=== PATIENT | female | born 1945 | race Caucasian/White ===

== ENCOUNTER 2017-06-29 21:54 | Emergency (ER) | payer MEDICARE ==
[2017-06-29 22:25] LABS: #Basophils 0.1 thou/uL (0.0-0.2); #Lymphocytes 2.6 thou/uL (1.20-3.40); #Monocytes 0.4 thou/uL (0.11-0.59); #Neutrophils 3.6 thou/uL (1.40-6.50); %Basophils 0.8 % (0.0-1.0); %Eosinophils 0.2 % (0.0-10.0); %Lymphocytes 38.5 % (21.0-51.0); %Monocytes 6.6 % (0.0-10.0); Hematocrit 43.7 % (36.0-47.0); Red Blood Cell (RBC) Count 4.87 mill/uL (4.20-5.40); White Blood Cell (WBC) Count 6.7 thou/uL (4.8-10.8)
[2017-06-29 22:47] LABS: ALT (SGPT) 16 U/L (8-55); AST (SGOT) 19 U/L (5-34); Alkaline Phosphatase 83 U/L (40-150); Anion Gap 15 mmol/L (10-20); BUN (Urea Nitrogen) 13 mg/dL (9.8-20.1); Bilirubin, Total 0.4 mg/dL (0.2-1.2); Calc. Creatinine Clearance 0 mL/min (70-130); Calcium 9.9 mg/dL (7.8-10.44); Carbon Dioxide 27 mmol/L (23-31); Chloride 99 mmol/L (98-107); Estimated GFR-MDRD 79; Globulin 3.3 g/dL (2.4-3.5); Lipase 32 U/L (8-78); Protein, Total 7.6 g/dL (6.0-8.3)
[2017-06-29] MEDS ORDERED: Lidocaine Viscous Sol 2% 15 ml UD Cup ONE (23:00)
[2017-06-29] MEDS ORDERED: Mag-Al 1200 mg/1200 mg/30 ML UDCUP ONE (23:00)
[2017-06-29 23:32] LABS: Troponin I Less than 0.010 ng/mL (< 0.028)
[2017-06-30] MEDS ORDERED: Lisinopril 10 MG TAB ONE (00:55)
--- NOTE | 2017-08-19 13:23 | EKG ---
Test Reason : Blood Pressure : / mmHG Vent. Rate : 060 BPM Atrial Rate : 060 BPM P-R Int : 152 ms QRS Dur : 116 ms QT Int : 444 ms P-R-T Axes : 029 014 023 degrees QTc Int : 444 ms Normal sinus rhythm Incomplete right bundle branch block Inferior infarct , age undetermined Abnormal ECG Confirmed by KELLI EASLEY, SOFIA ([id number]), society editor NAVJOT FARIAS ([id number]) on 08/19/2017 1:23:25 PM Referred By: Confirmed By:SOFIA PEREIRA MD
== END 2017-06-30 00:59 | disposition home or self-care (01) ==
LOC: ERS 21:54
DX: R10.13 Epigastric pain (principal); E78.5 Hyperlipidemia, unspecified; F31.9 Bipolar disorder, unspecified; J45.909 Unspecified asthma, uncomplicated; I10 Essential (primary) hypertension; K21.9 Gastro-esophageal reflux disease without esophagitis; Z79.82 Long term (current) use of aspirin; Z79.899 Other long term (current) drug therapy
CPT/HCPCS: 36415; 80053; 82553; 83690; 84484; 85025; 93005

== ENCOUNTER 2017-12-31 16:01 | Outpatient (CLI) | payer MEDICARE, MEDICAID | END 2017-12-31 16:02 | disposition home or self-care (01) | LOC: BICRAD 16:01 | PROVIDERS: ATTEND Family Medicine | DX: M25.552 Pain in left hip (principal) ==

== ENCOUNTER 2018-01-24 14:06 | Outpatient (CLI) | payer MEDICARE, MEDICAID | END 2018-01-24 14:07 | disposition home or self-care (01) | LOC: BICMAMMO 14:06 | PROVIDERS: ATTEND Orthopaedic Surgery Foot and Ankle Surgery | DX: M85.80 Other specified disorders of bone density and structure, unspecified site (principal) | CPT/HCPCS: 77080 ==

== ENCOUNTER 2018-04-30 12:12 | Outpatient (CLI) | payer MEDICARE, MEDICAID | END 2018-04-30 12:13 | disposition home or self-care (01) | LOC: BICRAD 12:12 | PROVIDERS: ATTEND Orthopaedic Surgery Foot and Ankle Surgery | DX: M25.571 Pain in right ankle and joints of right foot (principal); M19.071 Primary osteoarthritis, right ankle and foot ==

== ENCOUNTER 2018-06-20 13:03 | Outpatient (CLI) | payer MEDICARE, MEDICAID | END 2018-06-20 13:04 | disposition home or self-care (01) | LOC: BICMAMMO 13:03 | PROVIDERS: ATTEND Family Medicine | DX: Z12.31 Encounter for screening mammogram for malignant neoplasm of breast (principal) | CPT/HCPCS: 77063; 77067 ==

== ENCOUNTER 2019-01-24 20:32 | Emergency (ER) | payer MEDICARE, MEDICAID ==
[2019-01-24 21:20] LABS: #Lymphocytes 1.9 thou/uL (1.20-3.40); #Monocytes 0.5 thou/uL (0.11-0.59); #Neutrophils 2.2 thou/uL (1.40-6.50); %Basophils 0.1 % (0.0-1.0); %Eosinophils 0.1 % (0.0-10.0); %Lymphocytes 40.6 % (21.0-51.0); %Monocytes 10.3 % (0.0-10.0); %Neutrophils 48.9 % (42.0-75.0); Hemoglobin 13.3 g/dL (12.0-16.0); Mean Corpuscular HGB CONC 33.3 g/dL (32.0-36.0); Mean Corpuscular Hemoglobin 29.3 pg (27.0-31.0); Mean Corpuscular Volume 87.8 fL (78.0-98.0); Mean Platelet Volume 7.6 fL (7.4-10.4); Platelet Count 213 thou/uL (130-400); RBC Distribution Width 11.8 % (11.5-14.5); Red Blood Cell (RBC) Count 4.53 mill/uL (4.20-5.40); White Blood Cell (WBC) Count 4.6 thou/uL (4.8-10.8)
[2019-01-24 21:41] LABS: Anion Gap 11 mmol/L (10-20); BUN (Urea Nitrogen) 8 mg/dL (9.8-20.1); CK (CPK) 104 U/L (29-168); Calc. Creatinine Clearance 0 mL/min (70-130); Calcium 9.4 mg/dL (7.8-10.44); Carbon Dioxide 29 mmol/L (23-31); Chloride 101 mmol/L (98-107); Estimated GFR-MDRD 86; Glucose 92 mg/dL (83-110); Potassium 3.9 mmol/L (3.5-5.1); Sodium 137 mmol/L (136-145)
== END 2019-01-24 22:25 | disposition home or self-care (01) ==
LOC: ERS 20:32
DX: E86.0 Dehydration (principal); J45.909 Unspecified asthma, uncomplicated; E78.5 Hyperlipidemia, unspecified; I10 Essential (primary) hypertension; K21.9 Gastro-esophageal reflux disease without esophagitis; F31.9 Bipolar disorder, unspecified; Z79.899 Other long term (current) drug therapy; Z79.82 Long term (current) use of aspirin
CPT/HCPCS: 80048; 82550; 85025; 96360

== ENCOUNTER 2019-02-07 22:09 | Emergency (ER) | payer MEDICARE, MEDICAID ==
--- NOTE | 2019-02-07 23:16 | RAD ---
LEFT HAND: 02/07/19 Three views. INDICATIONS: Fall with injury. Soft tissue swelling seen dorsally. There is displaced fracture involving the distal fifth metacarpal with volar displacement and angulat ion of the distal fragment. Mildly displaced fracture involving the base of the proximal phalanx of the fifth finger. Transverse mildly angulated and displaced fracture involving the proximal aspect of the proximal phal anx of the fifth finger. IMPRESSION: Fractures involving the distal fifth metacarpal, proximal aspect of the proximal phalanx of the four th and fifth digits. POS: [facility]
--- NOTE | 2019-02-07 23:16 | RAD ---
RIGHT HAND: 02/07/19 Three views. HISTORY: Injury. Fracture involving the distal radius with impaction. Associated fracture of the ulnar styloid. Carpals, metacarpals, and phalanges appear intact. IMPRESSION: Fracture distal radius and ulna. POS: [facility]
--- NOTE | 2019-02-07 23:19 | RAD ---
RIGHT WRIST: 02/07/19 Three views. HISTORY: Injury. Transverse impacted fracture distal radius. Associated fracture of the ulnar styloid. Carpals appear intact. IMPRESSION: Fracture distal radius and ulna. POS: [facility]
[2019-02-08] MEDS ORDERED: Morphine 4 MG/ML VIAL ONE (00:26)
[2019-02-08] MEDS ORDERED: Ketorolac Tromethamine 30 MG/ML VIAL ONE (00:26)
[2019-02-08] MEDS ORDERED: Adacel (T-DAP) 0.5 ML SYRINGE ONE (03:24)
== END 2019-02-08 03:47 | disposition home or self-care (01) ==
LOC: ERS 22:09
DX: S52.501A Unspecified fracture of the lower end of right radius, initial encounter for closed fracture (principal); S52.601A Unspecified fracture of lower end of right ulna, initial encounter for closed fracture; S62.615A Displaced fracture of proximal phalanx of left ring finger, initial encounter for closed fracture; S62.617A Displaced fracture of proximal phalanx of left little finger, initial encounter for closed fracture; S62.337A Displaced fracture of neck of fifth metacarpal bone, left hand, initial encounter for closed fracture; J45.909 Unspecified asthma, uncomplicated; E78.5 Hyperlipidemia, unspecified; I10 Essential (primary) hypertension; K21.9 Gastro-esophageal reflux disease without esophagitis; F31.9 Bipolar disorder, unspecified; Z79.899 Other long term (current) drug therapy; Z79.82 Long term (current) use of aspirin; W19.XXXA Unspecified fall, initial encounter
CPT/HCPCS: 29105; 29125; 90471; 90715; 96374; 96375; J1885; J2270

== ENCOUNTER 2019-07-22 06:10 | Outpatient (CLI) | payer MEDICARE, MEDICAID ==
[2019-07-22 16:11] LABS: #Lymphocytes 1.2 thou/uL (1.20-3.40); #Monocytes 0.4 thou/uL (0.11-0.59); #Neutrophils 3.1 thou/uL (1.40-6.50); %Basophils 0.3 % (0.0-1.0); %Eosinophils 0.1 % (0.0-10.0); %Lymphocytes 25.2 % (21.0-51.0); %Monocytes 7.7 % (0.0-10.0); %Neutrophils 66.6 % (42.0-75.0); Hemoglobin 13.1 g/dL (12.0-16.0); Mean Corpuscular HGB CONC 33.7 g/dL (32.0-36.0); Mean Corpuscular Hemoglobin 30.2 pg (27.0-31.0); Mean Corpuscular Volume 89.7 fL (78.0-98.0); Mean Platelet Volume 7.5 fL (7.4-10.4); Platelet Count 219 thou/uL (130-400); RBC Distribution Width 11.5 % (11.5-14.5); Red Blood Cell (RBC) Count 4.34 mill/uL (4.20-5.40); White Blood Cell (WBC) Count 4.6 thou/uL (4.8-10.8)
[2019-07-22 16:16] LABS: Bilirubin Negative (Negative); Blood, Urine Negative (Negative); Clarity Clear (Clear); Glucose, Urine (Dipstick) Normal (Negative); Leukocyte Negative Leu/uL (Negative); Nitrite Negative (Negative); Protein, Urine (Dipstick) Negative (Neg-Trace); RBC/HPF 0-3 HPF (0-3); Squamous Epithelial None Seen HPF (0-3); Urobilinogen Normal mg/dL (Less than 2); WBC/HPF 0-3 HPF (0-3)
[2019-07-22 16:26] LABS: Bacteria/HPF None Seen HPF (None Seen)
[2019-07-22 16:31] LABS: Anion Gap 12 mmol/L (10-20); BUN (Urea Nitrogen) 8 mg/dL (9.8-20.1); Calc. Creatinine Clearance 0 mL/min (70-130); Calcium 8.7 mg/dL (7.8-10.44); Carbon Dioxide 27 mmol/L (23-31); Chloride 103 mmol/L (98-107); Estimated GFR-MDRD 78; Glucose 147 mg/dL (83-110); Potassium 3.9 mmol/L (3.5-5.1); Sodium 138 mmol/L (136-145)
--- NOTE | 2019-07-25 09:48 | EKG ---
Test Reason : Blood Pressure : / mmHG Vent. Rate : 070 BPM Atrial Rate : 070 BPM P-R Int : 152 ms QRS Dur : 122 ms QT Int : 414 ms P-R-T Axes : 029 015 -05 degrees QTc Int : 447 ms Normal sinus rhythm Right bundle branch block Inferior infarct (cited on or before 29-JUN-2017) Abnormal ECG When compared with ECG of 29-JUN-2017 22:46, T wave inversion now evident in Anterior leads Confirmed by SANDEEP EASLEY, SAfshan ([id number]) on 07/25/2019 9:47:50 AM Referred By: MARKUS Confirmed By:DR. Nova HOPKINS MD
== END 2019-07-22 06:11 | disposition home or self-care (01) ==
LOC: LABBT 06:10
PROVIDERS: ATTEND Orthopaedic Surgery Hand Surgery
DX: Z01.818 Encounter for other preprocedural examination (principal); G56.01 Carpal tunnel syndrome, right upper limb; S52.501A Unspecified fracture of the lower end of right radius, initial encounter for closed fracture; S63.591A Other specified sprain of right wrist, initial encounter
CPT/HCPCS: 80048; 81001; 85025; 93005; 93010

== ENCOUNTER 2019-07-27 13:02 | Inpatient (IN) | payer MEDICARE, MEDICAID ==
[2019-07-22 15:06] VITALS: BMI 23.0
[2019-07-27] MEDS ORDERED: Sodium Chloride 0.9% 0 ML ONE (13:21)
[2019-07-27] MEDS ORDERED: Promethazine HCl 25 MG/ML VIAL IM PRN ×3 (13:21→20:49)
[2019-07-27] MEDS ORDERED: Bupivacaine PF 0.5% 30 ML VIAL ONE (13:21)
[2019-07-27] MEDS ORDERED: Bacitracin Zinc Ointment 30 gm TUBE ONE (13:21)
[2019-07-27] MEDS ORDERED: Promethazine HCl 25 MG/ML VIAL SLOW IVP PRN ×2 (13:21→20:49)
[2019-07-27] MEDS ORDERED: Ondansetron HCl/PF 4 MG/2 ML Vial IVP PRN ×2 (13:21→20:49)
[2019-07-27] MEDS ORDERED: Fentanyl 100 MCG/2 ML VIAL ONE ×2 (13:28→14:00)
[2019-07-27] MEDS ORDERED: Clindamycin/D5W 600 mg/50 ml Premix Bag ONE (13:37)
[2019-07-27] MEDS ORDERED: Midazolam HCl 2 mg/2 ml Vial ONE (14:00)
[2019-07-27] MEDS ORDERED: Ondansetron PF 4 MG/2 ML Vial ONE (14:17)
[2019-07-27] MEDS ORDERED: Lidocaine 1% PF 5 ML VIAL ONE (14:17)
[2019-07-27] MEDS ORDERED: Ropivacaine 0.5% HCl/PF (150 MG/30 ML VIAL) ONE (14:17)
[2019-07-27] MEDS ORDERED: PHENYLEPHRINE-NS 100 MCG/ML 10 ML SYRINGE ONE (14:17)
[2019-07-27] MEDS ORDERED: PROPOFOL 200 MG/20 ML VIAL ONE (14:17)
[2019-07-27] MEDS ORDERED: ePHEDrine/0.9% NaCl/PF SYRINGE 50 mg/10 ml ONE (14:17)
[2019-07-27] MEDS ORDERED: Glycopyrrolate 0.2 MG/ML 5 ML SYRINGE ONE (14:17)
[2019-07-27] MEDS ORDERED: Zolpidem Tartrate 5 MG TAB PO PRN (14:37)
[2019-07-27] MEDS ORDERED: Ondansetron PF 4 MG/2 ML Vial IVP PRN (14:37)
[2019-07-27] MEDS ORDERED: Ropivacaine 0.2% 550 ML 550 ML NERVE BLCK SCH (14:37)
[2019-07-27] MEDS ORDERED: Thrombin 5000 UNITS/5 ML VIAL ONE (15:47)
[2019-07-27] MEDS ORDERED: EPINEPHrine 1 MG/ML AMP ONE (16:01)
[2019-07-27] MEDS ORDERED: Betamet Acet/Betamet Na Ph 30 MG/5 ML VIAL ONE (16:21)
[2019-07-27] MEDS ORDERED: HYDROmorphone 2 MG/ML VIAL SLOW IVP PRN (20:49)
[2019-07-27] MEDS ORDERED: PACU-Morphine 4MG/ML VIAL SLOW IVP PRN (20:49)
[2019-07-27] MEDS ORDERED: Morphine 2 MG/ML SYRINGE SLOW IVP PRN (21:07)
[2019-07-27] MEDS ORDERED: Fentanyl 100 MCG/2 ML VIAL SLOW IVP PRN (21:07)
[2019-07-27] MEDS ORDERED: Ondansetron PF 4 MG/2 ML Vial IV PRN (21:07)
[2019-07-27] MEDS ORDERED: Acetaminophen 325 MG TAB PO PRN (21:07)
[2019-07-27] MEDS ORDERED: traMADol HCl 50 MG TAB PO PRN (21:07)
[2019-07-27] MEDS ORDERED: RENALLY ADJUST ALL ANTIBIOTICS FS SCH (21:15)
--- NOTE | 2019-07-27 21:15 | RAD ---
INTRAOPERATIVE FLUOROSCOPY: History: ORIF, distal wrist fracture. FINDINGS: Twelve fluoroscopic images demonstrate placement of multiple K wires involving the distal radius and proximal carpal row. These wires are presumed to have been present, and are subsequently removed. Las t images demonstrate placement of a plate with screws at the level of the distal radius. Exposure: 104 seconds, 1.81 mGy*cm^2. IMPRESSION: Interoperative fluoroscopy as above. POS: [facility]
[2019-07-27] MEDS ORDERED: Meperidine HCl/PF 25 MG/ML VIAL IM PRN (21:16)
[2019-07-27 22:36] LABS: #Lymphocytes 0.7 thou/uL (1.20-3.40); #Monocytes 0.1 thou/uL (0.11-0.59); #Neutrophils 5.4 thou/uL (1.40-6.50); %Eosinophils 0.2 % (0.0-10.0); %Lymphocytes 11.6 % (21.0-51.0); %Monocytes 2.1 % (0.0-10.0); Hemoglobin 12.2 g/dL (12.0-16.0); Mean Corpuscular Hemoglobin 30.5 pg (27.0-31.0); Mean Corpuscular Volume 89.6 fL (78.0-98.0); Mean Platelet Volume 7.4 fL (7.4-10.4); Platelet Count 193 thou/uL (130-400); RBC Distribution Width 11.4 % (11.5-14.5); Red Blood Cell (RBC) Count 3.99 mill/uL (4.20-5.40); White Blood Cell (WBC) Count 6.3 thou/uL (4.8-10.8)
[2019-07-28] MEDS: HYDROcodone/Acetaminophen 10/325 mg Tablet PO PRN ×2 (02:15→22:14)
[2019-07-28] MEDS ORDERED: Vancomycin HCl 1 GM in Premix Bag 1 BAG IVPB SCH (03:30)
[2019-07-28 05:37] LABS: #Lymphocytes 0.7 thou/uL (1.20-3.40); #Monocytes 0.4 thou/uL (0.11-0.59); #Neutrophils 5.1 thou/uL (1.40-6.50); %Basophils 0.1 % (0.0-1.0); %Eosinophils 0.1 % (0.0-10.0); %Lymphocytes 11.8 % (21.0-51.0); %Monocytes 6.2 % (0.0-10.0); %Neutrophils 81.8 % (42.0-75.0); Hemoglobin 11.7 g/dL (12.0-16.0); Mean Corpuscular HGB CONC 34.2 g/dL (32.0-36.0); Mean Corpuscular Hemoglobin 30.3 pg (27.0-31.0); Mean Corpuscular Volume 88.5 fL (78.0-98.0); Mean Platelet Volume 7.2 fL (7.4-10.4); Platelet Count 202 thou/uL (130-400); RBC Distribution Width 11.2 % (11.5-14.5); Red Blood Cell (RBC) Count 3.86 mill/uL (4.20-5.40); White Blood Cell (WBC) Count 6.2 thou/uL (4.8-10.8)
[2019-07-28] MEDS: Aspirin 81 mg Enteric Coated Tablet PO SCH ×2 (08:21→21:26)
--- NOTE | 2019-07-28 08:25 | OP ---
DATE OF PROCEDURE: 07/27/2019 PREOPERATIVE DIAGNOSES: Right distal radius fracture malunion with marked shortening of almost 5 mm radius of ulna and sagittal plane angulation of greater than 40 degrees apex palmar, metaphyseal-diaphyseal junction fracture, no carpal, and mild synovitis over a central, but not frayed, but stable triangular fibrocartilage tear. PROCEDURES PERFORMED: 1. Diagnostic scope. 2. Right iliac crest bone graft harvest. 3. Right distal radius fracture osteotomy, metaphyseal using Ap Pedro type bone graft harvest from the contralateral iliac crest. BLOOD LOSS: 200 mL. TOURNIQUET TIME: 64 minutes first, then down for 60 minutes, then reinflated for another 109 minutes. INDICATION FOR PROCEDURE: The patient had a distal radius fracture; at the same time, she had a contralateral left hand injuries and may not have had complete enough immobilization in order to heal well, lost position now, has just apex palmar/sagittal plane dorsal tilt, articular surface over 35 degrees with marked loss of height, where she is older, approximately about 5 mm indicative of lunate to ulnar impingement. She has failed conservative treatment and is now very painful. DESCRIPTION OF PROCEDURE: After successful general endotracheal anesthesia, the limb was prepped and draped. The patient then underwent a time-out. We prepped and draped out the iliac crest area sterilely; at the same time, we prepped the arm, and then covered them both with to include [place] over the donor site. She was very thin. She requested contralateral left side to be used because the right side is the side she sleeps on. 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 We then exsanguinated the limb, inflated the tourniquet to 250 mmHg pressure, brought C-arm to the field, and localized the area through the skin, and we performed the osteotomy. We then carried this through the skin and subcutaneous tissue with the tourniquet up until we reached the interval between the third and second dorsal compartment, right to Saji's tubercle. We released the proximal one-half of the retinaculum, pulled the extensor pollicis longus in a safe position and released the second dorsal compartment. We left enough of the metaphysis showing in order to do osteotomy and secured it so using the standard technique, where we used the C-arm to identify the joint, placed two large K-wires parallel to the joint, and then placed a second one parallel to the shaft. We knew once we made the osteotomy cut and lifted it up, if these two were parallel to each other, we had performed our duty. We made a cut using the sagittal saw, almost 15 mm long and 4 mm wide. Once we did this, we flattened Saji's tubercle in which we used part as bone graft, and we finished the cut safely using the small cortex palmarly, which had to be manually manipulated in order to achieve maximum possible reduction. We did this, using lamina filler sifter machine in combination with [employer] until we achieved enough height angulation and tilt. The tilt was 5 degrees palmar. We then secured this bone after placement, sized measurements and then going to the pelvis, left hemipelvis, iliac crest, injected the potential incision that was 7 cm long with Marcaine 0.5%. We then was able to enter the skin, fascia, stripped the outer table and the inner table from the underlying fascia adherences and then performed with a sagittal saw, the gap matching in the radius bone graft harvested using a 15 mm, which would be dorsal to palmar and the remainder was up for visualization. We temporarily fixed this. We had achieved appropriate height and matched the shaft without malrotation to approximate as near anatomic reduction as possible and it showed that the one screw over the styloid may have been flushed with the bones. We did not put a screw here and we placed a separate dorsal plate on the dorsal ulnar one-half and then placed screws here with locking screws distally as it had been done in the ulnar side and proximally. We removed and irrigated any further area that were nonviable, although no infection was found, and then we were able to perform the complete malunion care by taking the harvested iliac bone graft and placed it in a distracted area, making sure we had bone graft placed all around for mixture of her own bone and cadaver related bone and we packed this in. At this time, we completed the K-wire fixation, brought the wires in, and did an open reduction and using a 15 mm wedge-shaped bone graft that would fill in the defect after we moved the angulated K-wire construct to parallel in the initial cut, and that was irrigated, secured with the plates as listed, a Y-shaped plate, hockey-stick almost, on the left and this was done without complication. The patient then had the wound closed first by closing the retinaculum after we had the bone graft in perfect position and the drill, measured tap showed perfect position. There was only the screw and plates in place. K-wires were moved and we placed the lag screw. It would be blocked by the K-wires that were moved. Irrigation was accomplished all layers were not closed in the arm and radiographs show excellent position. Additional cancellous bone was harvested out from the hemipelvis besides the tricortical wedge piece as well as some from the . The graft was secured, radiographs showed excellent position to include the joint, level, and procedure. There was no copious bleeding when the tourniquet was released. We closed the wounds in layers, first closing the right iliac crest area after placing thrombin with Gelfoam in the defect created by the iliac bone crest, tricortical wedge harvested. We closed the fascia with a running 0 Vicryl before placing a very anterior and lateral drain site through a separate stab wound. We then finished the fascia, closed with a running 0 Vicryl undyed, subcutaneous closed with 3-0 Monocryl, and the skin reapproximated with compa. Then, the patient had the crest covered. We must add that at the end of the procedure, as it had been planned based on the physical exam and complaints of numbness , the patient underwent a carpal tunnel release using the 2.5 cm incision and it was in line with the ring finger and it is far distal as Corona's cardinal line. We then subcutaneously tunneled, saw the palmaris longus becoming amalgamated with the fascial plane, used a combination of [place] blade, tenotomy scissors, released from the midline of the transcarpal ligament distally and then from the midline proximally. There was no evidence of complication. This wound was closed with good hemostasis using a 4-0 nylon, interrupted mattress pattern. The patient then left the operating room completely and there was no evidence of anesthetic or operative complication. Job ID: [id number]
[2019-07-28] MEDS ORDERED: TETANUS AND DIPHTHERIA TOX/PF 0.5 ML DISP.SYRIN IM SCH (09:00)
[2019-07-28] MEDS ORDERED: Acetaminophen 500 MG TAB PO PRN (12:41)
[2019-07-28] MEDS ORDERED: Ondansetron ODT 4 MG TAB PO PRN (12:44)
[2019-07-28] MEDS ORDERED: Amitriptyline HCl 25 MG TAB PO SCH (14:15)
[2019-07-28] MEDS ORDERED: Ziprasidone 20 MG CAP PO SCH (21:00)
[2019-07-28] MEDS ORDERED: Atorvastatin Calcium 10 MG TAB PO SCH (21:00)
[2019-07-28] MEDS ORDERED: Fluticasone Propionate Nasal Spray 16 gm Bottle NASAL SCH (21:00)
[2019-07-28] MEDS ORDERED: Venlafaxine HCl XR 75 MG CAP PO SCH (21:00)
[2019-07-28] MEDS ORDERED: clonazePAM 0.5 MG TAB PO SCH (21:00)
[2019-07-28] MEDS: Lubiprostone 24 MCG CAP PO SCH (21:26)
[2019-07-28] MEDS: Calcium Carbonate 600 MG TAB PO SCH (21:26)
[2019-07-29 00:41] VITALS: BP 116/57; TEMP 98.5
[2019-07-29] MEDS: HYDROcodone/Acetaminophen 10/325 mg Tablet PO PRN ×2 (08:26→15:03)
[2019-07-29] MEDS: Calcium Carbonate 600 MG TAB PO SCH (08:26)
[2019-07-29] MEDS: Lubiprostone 24 MCG CAP PO SCH (08:26)
[2019-07-29] MEDS: Aspirin 81 mg Enteric Coated Tablet PO SCH (08:26)
[2019-07-29] MEDS ORDERED: Bupropion 150 MG XL TAB PO SCH (09:00)
[2019-07-29] MEDS ORDERED: Lisinopril 10 MG TAB PO SCH (09:00)
[2019-07-29] MEDS ORDERED: Multivit, Therapeutic 1 TAB PO SCH (09:00)
== END 2019-07-29 15:15 | disposition home or self-care (01) | DRG 512 ==
LOC: SDC 13:02 → SURG B 22:15
PROVIDERS: ADMIT Orthopaedic Surgery Hand Surgery; ATTEND Orthopaedic Surgery Hand Surgery
PROC: 0PSH04Z Reposition Right Radius with Internal Fixation Device, Open Approach (ICD-10-PCS; principal; 2019-07-27)
PROC: 0PUH07Z Supplement Right Radius with Autologous Tissue Substitute, Open Approach (ICD-10-PCS; 2019-07-27)
PROC: 0QB30ZZ Excision of Left Pelvic Bone, Open Approach (ICD-10-PCS; 2019-07-27)
PROC: 01N50ZZ Release Median Nerve, Open Approach (ICD-10-PCS; 2019-07-27)
DX: S52.501P Unspecified fracture of the lower end of right radius, subsequent encounter for closed fracture with malunion (principal); Z96.642 Presence of left artificial hip joint; F41.9 Anxiety disorder, unspecified; F31.9 Bipolar disorder, unspecified; J45.909 Unspecified asthma, uncomplicated; I10 Essential (primary) hypertension; E78.5 Hyperlipidemia, unspecified; S63.591A Other specified sprain of right wrist, initial encounter; M25.839 Other specified joint disorders, unspecified wrist; K21.9 Gastro-esophageal reflux disease without esophagitis; X58.XXXA Exposure to other specified factors, initial encounter; Z87.440 Personal history of urinary (tract) infections; Z79.82 Long term (current) use of aspirin; Z79.899 Other long term (current) drug therapy; Z79.51 Long term (current) use of inhaled steroids; Z88.1 Allergy status to other antibiotic agents; Z88.0 Allergy status to penicillin; Z88.8 Allergy status to other drugs, medicaments and biological substances; S62.647 Nondisplaced fracture of proximal phalanx of left little finger; S62.645 Nondisplaced fracture of proximal phalanx of left ring finger
CPT/HCPCS: 36415; 76000; 85025; A4306; C1713; J0171; J0702; J2001; J2250; J2405; J2704; J2795; J3010; J3370; J3490; Q0162; S0020

== ENCOUNTER 2019-10-15 13:24 | Outpatient (CLI) | payer MEDICARE, MEDICAID ==
[2019-10-15 14:48] LABS: #Lymphocytes 1.4 thou/uL (1.20-3.40); #Monocytes 0.5 thou/uL (0.11-0.59); #Neutrophils 3.3 thou/uL (1.40-6.50); %Basophils 0.5 % (0.0-1.0); %Eosinophils 0.1 % (0.0-10.0); %Lymphocytes 26.7 % (21.0-51.0); %Monocytes 8.7 % (0.0-10.0); %Neutrophils 64.1 % (42.0-75.0); Hemoglobin 12.8 g/dL (12.0-16.0); Mean Corpuscular HGB CONC 33.2 g/dL (32.0-36.0); Mean Corpuscular Hemoglobin 29.6 pg (27.0-31.0); Mean Corpuscular Volume 89.2 fL (78.0-98.0); Platelet Count 262 thou/uL (130-400); RBC Distribution Width 11.5 % (11.5-14.5); Red Blood Cell (RBC) Count 4.34 mill/uL (4.20-5.40); White Blood Cell (WBC) Count 5.1 thou/uL (4.8-10.8)
== END 2019-10-15 13:25 | disposition home or self-care (01) ==
LOC: LABBT 13:24
PROVIDERS: ATTEND Orthopaedic Surgery Hand Surgery
DX: Z01.812 Encounter for preprocedural laboratory examination (principal); S66.211A Strain of extensor muscle, fascia and tendon of right thumb at wrist and hand level, initial encounter
CPT/HCPCS: 85025

== ENCOUNTER 2019-10-16 09:14 | Observation (INO) | payer MEDICARE, MEDICAID ==
[2019-10-15 10:07] VITALS: BMI 23.0
[2019-10-16] MEDS ORDERED: PHENYLEPHRINE-NS 100 MCG/ML 10 ML SYRINGE ONE (09:53)
[2019-10-16] MEDS ORDERED: PROPOFOL 200 MG/20 ML VIAL ONE (09:53)
[2019-10-16] MEDS ORDERED: Lidocaine 1% PF 5 ML VIAL ONE (09:53)
[2019-10-16] MEDS ORDERED: Dexamethasone 20 MG/5 ML VIAL ONE ×2 (09:53)
[2019-10-16] MEDS ORDERED: EPHEDRINE 25 MG/5 ML SYRINGE ONE (09:53)
[2019-10-16] MEDS ORDERED: Ondansetron PF 4 MG/2 ML Vial ONE (09:53)
[2019-10-16] MEDS ORDERED: Ropivacaine 0.5% HCl/PF (150 MG/30 ML VIAL) ONE (09:53)
[2019-10-16] MEDS ORDERED: Clindamycin/D5W 600 mg/50 ml Premix Bag ONE (10:03)
[2019-10-16] MEDS ORDERED: Fentanyl 100 MCG/2 ML VIAL ONE ×2 (10:18→10:39)
[2019-10-16] MEDS ORDERED: Dexamethasone 4 mg/ml Vial ONE (10:18)
[2019-10-16] MEDS ORDERED: Midazolam HCl 2 mg/2 ml Vial ONE (10:18)
[2019-10-16] MEDS ORDERED: Bupivacaine PF 0.5% 30 ML VIAL ONE (11:46)
[2019-10-16] MEDS ORDERED: Betamet Acet/Betamet Na Ph 30 MG/5 ML VIAL ONE (11:46)
[2019-10-16] MEDS ORDERED: Bacitracin Zinc Ointment 30 gm TUBE ONE (11:46)
--- NOTE | 2019-10-16 15:41 | RAD ---
Intraoperative imaging of the right wrist: 10/16/2019 COMPARISON: None HISTORY: Tendon transfer of right wrist FINDINGS: 4 intraoperative images are provided demonstrating volar screw and plate fixation hardware treating a fracture of the distal radius. 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 IMPRESSION: Intraoperative imaging as above.
[2019-10-16] MEDS ORDERED: Milk Of Magnesia 30 ML UDCUP PO PRN (17:30)
[2019-10-16] MEDS ORDERED: Acetaminophen 325 MG TAB PO PRN (17:30)
[2019-10-16] MEDS ORDERED: traMADol HCl 50 MG TAB PO PRN (17:30)
[2019-10-16] MEDS ORDERED: Sodium Chloride 0.9% 100 ML IV SCH (17:30)
[2019-10-16] MEDS ORDERED: Morphine 4 MG/ML VIAL SLOW IVP PRN (17:30)
[2019-10-16] MEDS ORDERED: Communication Order-Pharmacy FS SCH (17:30)
[2019-10-16] MEDS ORDERED: HYDROcodone/Acetaminophen 10/325 mg Tablet PO PRN (17:30)
[2019-10-16] MEDS ORDERED: Ondansetron PF 4 MG/2 ML Vial IV PRN (17:30)
[2019-10-16] MEDS ORDERED: Promethazine HCl 25 MG/ML VIAL IM PRN (17:30)
[2019-10-16] MEDS ORDERED: Fentanyl 100 MCG/2 ML VIAL SLOW IVP PRN (17:30)
[2019-10-16] MEDS ORDERED: Meperidine HCl/PF 25 MG/ML VIAL IM PRN (17:33)
[2019-10-16] MEDS: Sodium Chloride 0.9% 1,000 ML IV SCH (21:02)
[2019-10-16] MEDS: Aspirin 81 mg Enteric Coated Tablet PO SCH (21:03)
[2019-10-16] MEDS ORDERED: TETANUS AND DIPHTHERIA TOX/PF 0.5 ML DISP.SYRIN IM SCH (22:00)
[2019-10-16] MEDS ORDERED: Vancomycin HCl 1 GM in Premix Bag 1 BAG IVPB SCH (22:00)
[2019-10-17] MEDS ORDERED: HYDROcodone/Acetaminophen 10/325 mg Tablet PO PRN (05:11)
[2019-10-17] MEDS: Sodium Chloride 0.9% 1,000 ML IV SCH (05:36)
[2019-10-17 07:44] VITALS: BP 161/93; TEMP 98.5
[2019-10-17] MEDS: Aspirin 81 mg Enteric Coated Tablet PO SCH (09:10)
--- NOTE | 2019-10-19 11:32 | OP ---
DATE OF PROCEDURE: 10/16/2019 PREOPERATIVE DIAGNOSIS: Extensor pollicis longus attenuation, possible rupture in an area of previous open reduction and internal fixation with dorsal plate. FINDINGS: 1. Extensor carpi radialis brevis near-complete erosion and attenuation. 2. Extensor pollicis longus attenuation. 3. Approximately 50% loss of width, extensor carpi radialis longus, all secondary to plate with marked tenosynovitis of these tendons. 4. Early tenosynovitis of the extensor digitorum communis tendons. PROCEDURES PERFORMED: 1. Removal of deep implant (2 dorsal plates). 2. C-arm supervision. 3. Open reduction and internal fixation via volar plate and volar approach of the healing, but not completely healed Ap Vasquez graft site (completely healed proximally, and distally approximately 50% healed with no evidence of nonunion). 4. Radical extensor tenosynovectomy to the following tendons. a. Extensor digitorum communis. b. Extensor carpi radialis longus. c. Extensor carpi radialis brevis. d. Abductor pollicis longus. e. Extensor pollicis brevis. 5. Palmaris longus to extensor carpi radialis brevis tendon graft (3 cm segment). 6. Extensor indicis proprius to extensor pollicis longus tendon transfer. COMPLICATIONS: None. TOURNIQUET TIME: First tourniquet 160 minutes with 30 minutes tourniquet down time and second tourniquet is 50 minutes. DESCRIPTION OF PROCEDURE: After successful general endotracheal anesthesia, the limb was prepped and draped. The patient had been counseled for the tendon transfer, but we found more problems inside. We first made a dorsal approach over the area using a previous incision, extended it 1 cm distal and 2 cm proximal. Immediately upon opening the skin, we saw a marked tenosynovitis involving the 1st, 2nd, 3rd, and early 4th dorsal compartments. The extensor carpi radialis longus tendon was attenuated almost 50% near the crossover point and had marked tenosynovitis of the extensor carpi radialis brevis but the brevis had only a whisp of tendon intact with about 2 cm deficit, leaving it incompetent for her power. The same was seen in the extensor pollicis longus in the same region. It appeared that the irritation was coming from the plate, so we removed the plate after placing two 0.045 K-wires across the entire construct of the Ap Vasquez graft, the distal portion some metaphyseal widening and the central metaphysis. Once we knew this was intact, we inspected the graft site for the previous bone procedure, and saw that proximally to the shaft it was healed completely and distally, it was healed approximately 60% with the radial side showing interval healing. For this reason, we performed the tenosynovectomy of the extensor tendons as follows; abductor pollicis longus, extensor pollicis brevis, extensor carpi radialis longus, extensor carpi radialis brevis, and extensor digitorum communis, all in the region of the plates. The plates were removed without complications and removed from the field. Once we performed tenosynovectomy, irrigated the area completely. We then made a Joy type incision over the dorsal index finger, found the ulnarly located extensor indicis proprius, and then pulled it to find it and found it was intact without much tenosynovitis available for transfer. We placed a moist dressing over this dorsal wound, then made a volar approach centered over the extensor flexor carpi radialis, entered the interval between it and the radial artery, removed the pronator quadratus, leaving it radially based, and then localized the distal metaphysis in the Ap Vasquez graft and the shaft. We felt that a 4-hole plate would give us the best coverage as indeed the hole was just proximal to the graft metaphyseal shaft junction. We placed this on the C-arm, and using a standard drill measure and screw technique, I was able to place a very stable plate without any change in position to include volar tilt of the construct. We removed the 2 K-wires. We then harvested the palmaris longus with a slightly additional proximal incision and trimmed it of any muscle. We then released the tourniquet. We had approximately 30 minutes of closure to the palmar wound to include reapproximating the pronator quadratus with 0 Vicryl in interrupted fashion, inspected the median nerve to make sure it was intact and it was, irrigated, and then obtained hemostasis. We then closed the wound in 2 layers with a running 4-0 Monocryl for deep dermal closure and the epidermis reapproximated with 4-0 nylon interrupted simple pattern. The patient had a block preoperatively, so we did not give any local. We now returned to the dorsal incision, and 1st to the palmaris longus, resecting the distal 5 mm from the end of the extensor carpi radialis brevis, and used a Pulvertaft weave at times and then reflected the palmaris back on itself in a twisting fashion to fortify and weave it back proximally to the 1st weave in the extensor carpi radialis brevis. This gave excellent tension. This was tensioned with the wrist in 45 degrees of dorsiflexion. We then harvested the extensor indicis proprius, repaired the retinaculum with 4-0 interrupted Prolene, brought it back into the wound and freed the muscle belly to change the line of pull and placed it on top of the retinaculum or dorsal to the retinaculum. We did a Pulvertaft weave x3 into the extensor pollicis longus with the thumb extended almost 40 degrees off the plane of the other metacarpals. This gave excellent tension. We then did a [place] proximal and distal overlap and sutured this with 4-0 Prolene as well. We took the retinaculum, debrided it more to ensure there was no residual tenosynovitis, closed it over the extensor carpi radialis, extensor digitorum tendons combination, but the left the extensor pollicis longus dorsal to the retinaculum. Retinaculum was closed with interrupted 2-0 Vicryl in a simple pattern. We released the tourniquet. We obtained hemostasis. We placed a drain, 7-Barbadian Hemovac, in the wound. We used interrupted 4-0 Monocryl to close and reapproximate the dermis in points and then used 3-0 nylon proximal to the radiocarpal joint to close the incision in epidermis and 4-0 nylon distal to the radial ulnar joint. The patient had excellent capillary refill, there was no evidence of compartment problems, and bacitracin and Adaptic placed on the wound, with the wrist in 30 degrees of dorsiflexion and the thumb maximally extended away from the plane of the metacarpophalangeal joint. We then placed a sugar-tong splint for the wrist dorsiflexion and a separate 3-inch splint for the thumb immobilization. Digit was pink and the patient left the operating room without evidence of anesthetic or operative complication. Job ID: [id number]
== END 2019-10-17 10:40 | disposition home or self-care (01) ==
LOC: SDC 09:14 → SURG A 17:33
PROVIDERS: ADMIT Orthopaedic Surgery Hand Surgery; ATTEND Orthopaedic Surgery Hand Surgery
PROC: 0LT70ZZ Resection of Right Hand Tendon, Open Approach (ICD-10-PCS; principal; 2019-10-16)
PROC: 0PSH04Z Reposition Right Radius with Internal Fixation Device, Open Approach (ICD-10-PCS; 2019-10-16)
PROC: 0LU507Z Supplement Right Lower Arm and Wrist Tendon with Autologous Tissue Substitute, Open Approach (ICD-10-PCS; 2019-10-16)
DX: S52.501A Unspecified fracture of the lower end of right radius, initial encounter for closed fracture (principal); S66.811A Strain of other specified muscles, fascia and tendons at wrist and hand level, right hand, initial encounter; T84.89XA Other specified complication of internal orthopedic prosthetic devices, implants and grafts, initial encounter; M65.841 Other synovitis and tenosynovitis, right hand; E78.5 Hyperlipidemia, unspecified; E11.9 Type 2 diabetes mellitus without complications; K21.9 Gastro-esophageal reflux disease without esophagitis; M19.90 Unspecified osteoarthritis, unspecified site; M81.0 Age-related osteoporosis without current pathological fracture; F31.9 Bipolar disorder, unspecified; J45.909 Unspecified asthma, uncomplicated; I34.0 Nonrheumatic mitral (valve) insufficiency; F41.9 Anxiety disorder, unspecified; M85.80 Other specified disorders of bone density and structure, unspecified site; Z79.82 Long term (current) use of aspirin; Z79.899 Other long term (current) drug therapy; Z88.0 Allergy status to penicillin; Z88.1 Allergy status to other antibiotic agents; Z88.2 Allergy status to sulfonamides; Z88.8 Allergy status to other drugs, medicaments and biological substances; Z98.890 Other specified postprocedural states; X58.XXXA Exposure to other specified factors, initial encounter
CPT/HCPCS: 25116; 25312; 25607; 73110; 76000; 96361 ×2; 96374; C1713 ×2; G0378 ×2; J0702; J1100; J2001; J2250; J2405; J2704; J2795; J3010; J3370; J3490; S0020

== ENCOUNTER 2020-02-11 11:35 | Outpatient (CLI) | payer MEDICARE, MEDICAID ==
--- NOTE | 2020-02-11 13:17 | MMO ---
Bilateral MAMMO Bilat Screen [facility]. CLINICAL HISTORY: Patient is 74 years old and is seen for screening. The patient has no family history of breast cancer. The patient has no personal history of cancer. The patient has a history of left Cyst Aspiration in 1994 - Benign. VIEWS: The views performed were: bilateral craniocaudal with tomosynthesis and bilateral mediolateral oblique with tomosynthesis. FILMS COMPARED: The present examination has been compared to prior imaging studies performed at [facility] on 04/04/2015, 04/09/2016, 05/17/2017 and 06/20/2018. This study has been interpreted with the assistance of computer-aided detection. MAMMOGRAM FINDINGS: There are scattered fibroglandular densities. There are stable benign appearing calcifications seen in both breasts. There are no suspicious masses, suspicious calcifications, or new areas of architectural distortion. IMPRESSION: THERE IS NO MAMMOGRAPHIC EVIDENCE OF MALIGNANCY. A ROUTINE FOLLOW-UP MAMMOGRAM IN 1 YEAR IS RECOMMENDED. THE RESULTS OF THIS EXAM WERE SENT TO THE PATIENT. ACR BI-RADS Category 2 - Benign finding MAMMOGRAPHY NOTE: 1. A negative mammogram report should not delay a biopsy if a dominant of clinically suspicious mass is present. 2. Approximately 10% to 15% of breast cancers are not detected by mammography. 3. Adenosis and dense breasts may obscure an underlying neoplasm. Reported by: ALESSANDRA VELEZ MD Electonically Signed: [id number]
== END 2020-02-11 11:36 | disposition home or self-care (01) ==
LOC: BICMAMMO 11:35
PROVIDERS: ATTEND Family Medicine
DX: Z12.31 Encounter for screening mammogram for malignant neoplasm of breast (principal)
CPT/HCPCS: 77063; 77067

== ENCOUNTER 2020-06-06 16:21 | Outpatient (CLI) | payer MEDICARE, MEDICAID ==
--- NOTE | 2020-06-06 16:48 | RAD ---
XR Hip Rt 2-3 View HISTORY: Fall, right hip pain FINDINGS: No fracture or dislocation is identified. Degenerative changes are seen.
--- NOTE | 2020-06-06 17:01 | RAD ---
RIGHT WRIST 3 VIEWS: HISTORY: Right wrist pain, injury FINDINGS: No acute fracture or dislocation is identified. There are postop changes of internal fixation of the distal radial fracture seen on 02/07/2019 with plate and screws in good position and alignment. There are also old fractures of the ulnar styloid. There is a bony density in the dorsal aspect of the carpus, suspicious for an age indeterminate triqu etral fracture. This was not seen on the previous study of 02/07/2019. If symptoms do not improve, a follow-up exam should be obtained in 7-10 days.
== END 2020-06-06 16:22 | disposition home or self-care (01) ==
LOC: BICRAD 16:21
PROVIDERS: ATTEND Family Medicine
DX: M25.551 Pain in right hip (principal); M25.531 Pain in right wrist

== ENCOUNTER 2020-10-20 12:00 | Outpatient (CLI) | payer MEDICARE, MEDICAID ==
--- NOTE | 2020-10-20 14:23 | RAD ---
3 views thoracic spine: 10/20/2020 COMPARISON: None available HISTORY: Fall, trauma, pain FINDINGS: There is a focal area of lower thoracic spine dextroscoliosis. There is an age indeterminan t anterior wedge compression fracture of the T8 vertebral body with approximately 50% loss of vertebral body height anteriorly. There is an age-indeterminate anterior wedge compression fracture a t T12, not optimally assessed on the lateral view secondary to artifact, with loss of vertebral body height estimated in the 50% range, particularly laterally on the left. There is a superior endpl ate fracture of L3 which is age indeterminant with approximately 50% loss of vertebral body height. IMPRESSION: Age-indeterminate fractures of T8, T12, and L3.
== END 2020-10-20 12:01 | disposition home or self-care (01) ==
LOC: BICRAD 12:00
PROVIDERS: ATTEND Family Medicine
DX: M54.6 Pain in thoracic spine (principal)
CPT/HCPCS: 72072

== ENCOUNTER 2020-10-26 10:44 | Outpatient (CLI) | payer MEDICARE, MEDICAID | END 2020-10-26 10:45 | disposition home or self-care (01) | LOC: BICMAMMO 10:44 | PROVIDERS: ATTEND Family Medicine | DX: M81.0 Age-related osteoporosis without current pathological fracture (principal) | CPT/HCPCS: 77080 ==

== ENCOUNTER 2021-02-04 22:01 | Emergency (ER) | payer OTHER, MEDICARE, MEDICAID | END 2021-02-05 00:40 | disposition home or self-care (01) | LOC: ERS 22:01 | DX: S52.022A Displaced fracture of olecranon process without intraarticular extension of left ulna, initial encounter for closed fracture (principal); W01.10XA Fall on same level from slipping, tripping and stumbling with subsequent striking against unspecified object, initial encounter; J45.909 Unspecified asthma, uncomplicated; E78.5 Hyperlipidemia, unspecified; I10 Essential (primary) hypertension; K21.9 Gastro-esophageal reflux disease without esophagitis | CPT/HCPCS: 29105 ==

== ENCOUNTER 2021-06-01 12:32 | Outpatient (CLI) | payer MEDICARE, MEDICAID | END 2021-06-01 12:33 | disposition home or self-care (01) | LOC: BICMAMMO 12:32 | PROVIDERS: ATTEND Family Medicine | DX: Z12.31 Encounter for screening mammogram for malignant neoplasm of breast (principal); N64.89 Other specified disorders of breast; Z98.890 Other specified postprocedural states | CPT/HCPCS: 77063; 77067 ==

== ENCOUNTER 2021-06-05 13:10 | Emergency (ER) | payer MEDICARE, MEDICAID ==
[2021-06-05] MEDS ORDERED: Lidocaine 1% w/Epinephrine 1:100K 20 ML VIAL ONE (13:36)
== END 2021-06-05 16:18 | disposition home or self-care (01) ==
LOC: ERS 13:10
DX: S51.012A Laceration without foreign body of left elbow, initial encounter (principal); M25.552 Pain in left hip; E78.5 Hyperlipidemia, unspecified; J45.909 Unspecified asthma, uncomplicated; Z23 Encounter for immunization; K21.9 Gastro-esophageal reflux disease without esophagitis; I10 Essential (primary) hypertension; W18.09XA Striking against other object with subsequent fall, initial encounter
CPT/HCPCS: 12002; 72170

== ENCOUNTER 2021-06-06 10:02 | Outpatient (CLI) | payer MEDICARE, MEDICAID | END 2021-06-06 10:03 | disposition home or self-care (01) | LOC: BICMAMMO 10:02 | PROVIDERS: ATTEND Family Medicine | DX: R92.8 Other abnormal and inconclusive findings on diagnostic imaging of breast (principal) | CPT/HCPCS: 76642; 77065; G0279 ==

== ENCOUNTER 2022-01-09 15:29 | Emergency (ER) | payer MEDICARE, MEDICAID ==
[2022-01-09] MEDS ORDERED: Lorazepam 1 MG TAB ONE (16:17)
[2022-01-09] MEDS ORDERED: Ibuprofen 800 MG TAB ONE (17:16)
[2022-01-09] MEDS ORDERED: Ibuprofen 200 MG TAB ONE (17:18)
== END 2022-01-09 17:27 | disposition home or self-care (01) ==
LOC: ERS 15:29
DX: S00.03XA Contusion of scalp, initial encounter (principal); S00.83XA Contusion of other part of head, initial encounter; I10 Essential (primary) hypertension; K21.9 Gastro-esophageal reflux disease without esophagitis; E78.5 Hyperlipidemia, unspecified; Z79.899 Other long term (current) drug therapy; Z79.82 Long term (current) use of aspirin; W18.30XA Fall on same level, unspecified, initial encounter
CPT/HCPCS: 70450; 70486

== ENCOUNTER 2022-03-14 15:15 | Outpatient (CLI) | payer MEDICARE, MEDICAID | END 2022-03-14 15:16 | disposition home or self-care (01) | LOC: BICRAD 15:15 | PROVIDERS: ATTEND Family Medicine | DX: M25.521 Pain in right elbow (principal); W19.XXXA Unspecified fall, initial encounter ==

== ENCOUNTER 2022-04-05 13:22 | Outpatient (CLI) | payer MEDICARE, MEDICAID | END 2022-04-05 13:23 | disposition home or self-care (01) | LOC: BICRAD 13:22 | PROVIDERS: ATTEND Family Medicine | DX: M79.641 Pain in right hand (principal); M79.644 Pain in right finger(s); S62.521A Displaced fracture of distal phalanx of right thumb, initial encounter for closed fracture ==

== ENCOUNTER 2022-06-08 12:39 | Emergency (ER) | payer OTHER, MEDICARE, MEDICAID ==
[~2022-06-08 12:39] MED LIST: Iopamidol-370 76% 500 ML 1 ML ONE
[2022-06-08 13:22] LABS: #Lymphocytes 1.1 thou/uL (1.20-3.40); #Monocytes 0.5 thou/uL (0.11-0.59); #Neutrophils 8.2 thou/uL (1.40-6.50); %Basophils 0.3 % (0.0-1.0); %Eosinophils 0.2 % (0.0-10.0); %Lymphocytes 10.8 % (21.0-51.0); %Neutrophils 83.7 % (42.0-75.0); Hemoglobin 12.3 g/dL (12.0-16.0); Mean Corpuscular HGB CONC 32.5 g/dL (32.0-36.0); Mean Corpuscular Hemoglobin 29.4 pg (27.0-31.0); Mean Corpuscular Volume 90.3 fL (78.0-98.0); Mean Platelet Volume 7.4 fL (7.4-10.4); Platelet Count 277 thou/uL (130-400); RBC Distribution Width 11.5 % (11.5-14.5); White Blood Cell (WBC) Count 9.8 thou/uL (4.8-10.8)
[2022-06-08] MEDS ORDERED: Lorazepam 2 MG/ML VIAL ONE (13:32)
[2022-06-08 13:42] LABS: ALT (SGPT) 17 U/L (8-55); AST (SGOT) 34 U/L (5-34); Albumin 3.7 g/dL (3.4-4.8); Alkaline Phosphatase 72 U/L (40-110); Anion Gap 13 mmol/L (10-20); BUN (Urea Nitrogen) 14 mg/dL (9.8-20.1); Bilirubin, Total 0.5 mg/dL (0.2-1.2); Calc. Creatinine Clearance 0 mL/min (70-130); Calcium 8.4 mg/dL (7.8-10.44); Carbon Dioxide 22 mmol/L (23-31); Chloride 103 mmol/L (98-107); Estimated GFR 88; Globulin 2.4 g/dL (2.4-3.5); Glucose 131 mg/dL (83-110); Potassium 4.4 mmol/L (3.5-5.1); Protein, Total 6.1 g/dL (5.8-8.1); Sodium 134 mmol/L (136-145)
[2022-06-08] MEDS ORDERED: Fentanyl 100 MCG/2 ML VIAL ONE (16:19)
== END 2022-06-08 18:37 | disposition home or self-care (01) ==
LOC: ERS 12:39
DX: S22.43XA Multiple fractures of ribs, bilateral, initial encounter for closed fracture (principal); R91.8 Other nonspecific abnormal finding of lung field; R91.1 Solitary pulmonary nodule; V43.52XA Car driver injured in collision with other type car in traffic accident, initial encounter; Z79.899 Other long term (current) drug therapy; Z79.82 Long term (current) use of aspirin; J45.909 Unspecified asthma, uncomplicated; E78.5 Hyperlipidemia, unspecified; I10 Essential (primary) hypertension; K21.9 Gastro-esophageal reflux disease without esophagitis
CPT/HCPCS: 36415; 70450; 71260; 72125; 80053; 85025; 93005; 94760; 96374; 96375; J2060; J3010; Q9967

== ENCOUNTER 2022-09-11 14:25 | Outpatient (CLI) | payer MEDICARE, MEDICAID | END 2022-09-11 14:26 | disposition home or self-care (01) | LOC: BICRAD 14:25 | PROVIDERS: ATTEND Family Medicine | DX: R07.9 Chest pain, unspecified (principal) ==

== ENCOUNTER 2022-10-29 11:29 | Outpatient (CLI) | payer MEDICARE, MEDICAID | END 2022-10-29 11:30 | disposition home or self-care (01) | LOC: BICMAMMO 11:29 | PROVIDERS: ATTEND Family Medicine | DX: Z12.31 Encounter for screening mammogram for malignant neoplasm of breast (principal); Z98.890 Other specified postprocedural states | CPT/HCPCS: 77063; 77067 ==

== ENCOUNTER 2023-03-20 15:20 | Outpatient (CLI) | payer MEDICARE, MEDICAID | END 2023-03-20 15:21 | disposition home or self-care (01) | LOC: RAD 15:20 | PROVIDERS: ATTEND Family Medicine | DX: M79.641 Pain in right hand (principal) ==

== ENCOUNTER 2023-03-30 09:23 | Emergency (ER) | payer MEDICARE, MEDICAID ==
[2023-03-30] MEDS ORDERED: Ibuprofen 200 MG TAB ONE ×2 (10:06→10:10)
[2023-03-30] MEDS ORDERED: traMADol HCl 50 MG TAB ONE (10:42)
== END 2023-03-30 15:30 | disposition home or self-care (01) ==
LOC: ERS 09:23
DX: M25.561 Pain in right knee (principal); E78.5 Hyperlipidemia, unspecified; I10 Essential (primary) hypertension; K21.9 Gastro-esophageal reflux disease without esophagitis; Z79.82 Long term (current) use of aspirin; Z79.899 Other long term (current) drug therapy

== ENCOUNTER 2023-04-12 11:33 | Emergency (ER) | payer MEDICARE, MEDICAID ==
[2023-04-12 12:58] LABS: #Monocytes 0.4 thou/uL (0.11-0.59); #Neutrophils 5.2 thou/uL (1.40-6.50); %Lymphocytes 17.6 % (21.0-51.0); %Neutrophils 76.1 % (42.0-75.0); Hemoglobin 12.8 g/dL (12.0-16.0); Mean Corpuscular HGB CONC 33.7 g/dL (32.0-36.0); Mean Corpuscular Hemoglobin 29.2 pg (27.0-31.0); Mean Corpuscular Volume 86.6 fl (78.0-98.0); Mean Platelet Volume 9.8 fL (7.4-10.4); Platelet Count 289 10x3/uL (130-400); RBC Distribution Width 13.1 % (11.5-14.5); Red Blood Cell (RBC) Count 4.39 mill/uL (4.20-5.40); White Blood Cell (WBC) Count 6.8 10x3/uL (4.8-10.8)
[2023-04-12 13:14] LABS: Bacteria/HPF None Seen HPF (None Seen); Bilirubin Negative (Negative); Blood, Urine Negative (Negative); CAUTI Indications for Culture Pelvic or flank pain; Clarity Clear (Clear); Glucose, Urine (Dipstick) Normal (Negative); Ketone, Urine Negative (Negative); Leukocyte Negative Leu/uL (Negative); Nitrite Negative (Negative); Protein, Urine (Dipstick) Negative (Neg-Trace); RBC/HPF 0-3 HPF (0-3); Specific Gravity, Urine 1.013 (1.002-1.036); Squamous Epithelial 0-3 HPF (0-3); Urobilinogen Normal mg/dL (Less than 2); WBC/HPF 0-3 HPF (0-3)
[2023-04-12 13:16] LABS: Urine Culture Reflex No No
[2023-04-12 13:20] LABS: ALT (SGPT) 14 U/L (8-55); AST (SGOT) 19 U/L (5-34); Albumin 4.1 g/dL (3.4-4.8); Alkaline Phosphatase 93 U/L (40-110); Anion Gap 11 mmol/L (10-20); BUN (Urea Nitrogen) 16 mg/dL (9.8-20.1); Bilirubin, Total 0.4 mg/dL (0.2-1.2); Calc. Creatinine Clearance 0 mL/min (70-130); Calcium 9.1 mg/dL (7.8-10.44); Carbon Dioxide 28 mmol/L (23-31); Chloride 103 mmol/L (98-107); Estimated GFR 83; Globulin 3.1 g/dL (2.4-3.5); Glucose 109 mg/dL (83-110); Potassium 4.1 mmol/L (3.5-5.1); Protein, Total 7.2 g/dL (5.8-8.1); Sodium 138 mmol/L (136-145)
[2023-04-12 13:25] LABS: Troponin I Less than 0.010 ng/mL (< 0.028)
[2023-04-12] MEDS ORDERED: Ondansetron PF 4 MG/2 ML Vial ONE (13:34)
== END 2023-04-12 14:20 | disposition home or self-care (01) ==
LOC: ERS 11:33
DX: R55 Syncope and collapse (principal); G47.8 Other sleep disorders; R11.0 Nausea; R03.0 Elevated blood-pressure reading, without diagnosis of hypertension; K21.9 Gastro-esophageal reflux disease without esophagitis; J45.909 Unspecified asthma, uncomplicated; E78.5 Hyperlipidemia, unspecified; Z79.899 Other long term (current) drug therapy; Z79.82 Long term (current) use of aspirin
CPT/HCPCS: 80053; 81001; 84484; 85025; 93005; 96361; 96374; J2405

== ENCOUNTER 2023-09-17 14:48 | Emergency (ER) | payer MEDICARE, MEDICAID ==
[2023-09-17 15:10] LABS: #Monocytes 0.1 thou/uL (0.11-0.59); #Neutrophils 8.4 thou/uL (1.40-6.50); %Basophils 0.1 % (0.0-1.0); %Lymphocytes 6.4 % (21.0-51.0); %Monocytes 0.8 % (0.0-10.0); %Neutrophils 92.5 % (42.0-75.0); Hemoglobin 13.4 g/dL (12.0-16.0); Mean Corpuscular HGB CONC 33.5 g/dL (32.0-36.0); Mean Corpuscular Hemoglobin 29.9 pg (27.0-31.0); Mean Corpuscular Volume 89.3 fl (78.0-98.0); Mean Platelet Volume 9.3 fL (7.4-10.4); Platelet Count 332 10x3/uL (130-400); RBC Distribution Width 12.1 % (11.5-14.5); Red Blood Cell (RBC) Count 4.48 mill/uL (4.20-5.40); White Blood Cell (WBC) Count 9.1 10x3/uL (4.8-10.8)
[2023-09-17 15:28] LABS: ALT (SGPT) 71 U/L (8-55); AST (SGOT) 135 U/L (5-34); Alkaline Phosphatase 114 U/L (40-110); Anion Gap 12 mmol/L (10-20); BUN (Urea Nitrogen) 20 mg/dL (9.8-20.1); Bilirubin, Total 1.4 mg/dL (0.2-1.2); Calc. Creatinine Clearance 0 mL/min (70-130); Calcium 8.8 mg/dL (7.8-10.44); Carbon Dioxide 29 mmol/L (23-31); Chloride 102 mmol/L (98-107); Estimated GFR 89; Glucose 167 mg/dL (83-110); Lipase 44 U/L (8-78); Potassium 3.7 mmol/L (3.5-5.1); Sodium 139 mmol/L (136-145)
[2023-09-17 15:33] LABS: Troponin I Less than 0.010 ng/mL (< 0.028)
[2023-09-17] MEDS ORDERED: Famotidine/PF 20 mg/2ml Vial ONE (16:01)
[2023-09-17] MEDS ORDERED: Ondansetron PF 4 MG/2 ML Vial ONE (16:12)
[2023-09-17 17:54] LABS: Bilirubin Negative (Negative); Blood, Urine Negative (Negative); CAUTI Indications for Culture Dysuria,urgency,freq; Clarity Turbid (Clear); Glucose, Urine (Dipstick) Normal (Negative); Ketone, Urine Negative (Negative); Leukocyte 75 Leu/uL (Negative); Nitrite Negative (Negative); Protein, Urine (Dipstick) Negative (Neg-Trace); RBC/HPF 0-3 HPF (0-3); Specific Gravity, Urine 1.019 (1.002-1.036); Urobilinogen 3 mg/dL (Less than 2); WBC/HPF 0-3 HPF (0-3)
[2023-09-17 17:58] LABS: Bacteria/HPF 1+ HPF (None Seen); Urine Culture Reflex No No
== END 2023-09-17 21:15 | disposition home or self-care (01) ==
LOC: ERS 14:48
DX: S32.030A Wedge compression fracture of third lumbar vertebra, initial encounter for closed fracture (principal); S32.040A Wedge compression fracture of fourth lumbar vertebra, initial encounter for closed fracture; K80.80 Other cholelithiasis without obstruction; R94.5 Abnormal results of liver function studies; I10 Essential (primary) hypertension; X58.XXXA Exposure to other specified factors, initial encounter
CPT/HCPCS: 74176; 76705; 80053; 81001; 83690; 84484; 85025; 93005; 96361; 96374; 96375; J2405; S0028

== ENCOUNTER 2023-10-09 15:01 | Outpatient (CLI) | payer MEDICARE, MEDICAID ==
[2023-10-09 17:21] LABS: #Monocytes 0.8 10x3/uL (0.0-1.1); #Neutrophils 5.5 10x3/uL (1.5-8.4); %Basophils 0.1 % (0.0-2.0); %Lymphocytes 20.5 % (18.0-47.0); %Monocytes 9.7 % (0.0-10.0); %Neutrophils 69.3 % (40.0-75.0); Hematocrit 38.1 % (34.9-44.5); Hemoglobin 12.8 g/dL (12.0-15.5); Mean Corpuscular HGB CONC 33.6 g/dL (32.0-36.0); Mean Corpuscular Hemoglobin 29.7 pg (27.0-33.0); Mean Corpuscular Volume 88.4 fl (81.6-98.3); Mean Platelet Volume 10.2 fl (7.4-10.4); Platelet Count 390 10x3/uL (150-450); RBC Distribution Width 12.3 % (11.5-14.5); Red Blood Cell (RBC) Count 4.31 10x6/uL (3.90-5.03); White Blood Cell (WBC) Count 7.9 10x3/uL (3.5-10.5)
[2023-10-09 17:31] LABS: ALT (SGPT) 17 U/L (8-55); AST (SGOT) 18 U/L (5-34); Alkaline Phosphatase 85 U/L (40-110); Anion Gap 14 mmol/L (10-20); BUN (Urea Nitrogen) 27 mg/dL (9.8-20.1); Bilirubin, Total 0.3 mg/dL (0.2-1.2); Calc. Creatinine Clearance 0 mL/min (70-130); Calcium 8.9 mg/dL (7.8-10.44); Carbon Dioxide 27 mmol/L (23-31); Chloride 100 mmol/L (98-107); Estimated GFR 90; Globulin 2.6 g/dL (2.4-3.5); Glucose 103 mg/dL (83-110); Potassium 4.7 mmol/L (3.5-5.1); Protein, Total 6.6 g/dL (5.8-8.1); Sodium 136 mmol/L (136-145)
== END 2023-10-09 15:02 | disposition home or self-care (01) ==
LOC: LABBT 15:01
PROVIDERS: ATTEND Specialist
DX: Z01.818 Encounter for other preprocedural examination (principal); K80.20 Calculus of gallbladder without cholecystitis without obstruction; K44.9 Diaphragmatic hernia without obstruction or gangrene
CPT/HCPCS: 71046; 80053; 85025; 93005; 93010

== ENCOUNTER 2023-10-25 10:43 | Day surgery (SDC) | payer MEDICARE, MEDICAID ==
[2023-10-25] MEDS ORDERED: Acetaminophen 500 MG TAB ONE (11:12)
[2023-10-25] MEDS ORDERED: Ketorolac Tromethamine 30 MG (1 mL) VIAL ONE ×2 (11:12→12:14)
[2023-10-25] MEDS ORDERED: Indocyanine Green 25 MG/10 ML VIAL ONE (11:57)
[2023-10-25] MEDS ORDERED: EPINEPHrine 1 MG/ML VIAL ONE (11:57)
[2023-10-25] MEDS ORDERED: Bupivacaine 0.25% HCL 30 ML VIAL ONE (11:58)
[2023-10-25] MEDS ORDERED: Dexamethasone 4 mg/ml Vial ONE (12:14)
[2023-10-25] MEDS ORDERED: Rocuronium Bromide 10 MG/ML (10ML VIAL) ONE (12:14)
[2023-10-25] MEDS ORDERED: Phenylephrine 10 MG/ML VIAL ONE (12:14)
[2023-10-25] MEDS ORDERED: fentaNYL 50 mcg/mL 1 mL Vial ONE (12:14)
[2023-10-25] MEDS ORDERED: Ondansetron PF 4 MG/2 ML Vial ONE (12:14)
[2023-10-25] MEDS ORDERED: PROPOFOL 20 ML ONE (12:14)
[2023-10-25] MEDS ORDERED: Lidocaine 2% PF 5 ML VIAL ONE (12:15)
[2023-10-25] MEDS ORDERED: Famotidine/PF 20 mg/2ml Vial ONE (12:19)
[2023-10-25] MEDS ORDERED: CEFAZOLIN 2 GM VIAL ONE (12:38)
[2023-10-25] MEDS ORDERED: Midazolam HCl 2 mg/2 ml Vial ONE (12:38)
[2023-10-25] MEDS ORDERED: Sodium Chloride 0.9% 100 ML ONE (12:39)
[2023-10-25] MEDS ORDERED: Sodium Chloride 0.9% 250 ML 0 ML ONE (12:39)
[2023-10-25] MEDS ORDERED: SUGAMMADEX SODIUM 200 MG/2 ML VIAL ONE (13:32)
[2023-10-25] MEDS ORDERED: Ondansetron ODT 4 MG TAB ONE (14:18)
[2023-10-25] MEDS ORDERED: oxyCODONE 5 MG TAB ONE (15:44)
[2023-10-25] MEDS ORDERED: Promethazine HCl 25 MG/ML VIAL ONE (15:44)
== END 2023-10-25 16:38 | disposition home or self-care (01) ==
LOC: SDC 10:43
PROVIDERS: ATTEND Specialist
PROC: 0FT44ZZ Resection of Gallbladder, Percutaneous Endoscopic Approach (ICD-10-PCS; principal; 2023-10-25)
DX: K80.12 Calculus of gallbladder with acute and chronic cholecystitis without obstruction (principal); I10 Essential (primary) hypertension; E78.5 Hyperlipidemia, unspecified; F41.9 Anxiety disorder, unspecified; F32.A Depression, unspecified; K21.9 Gastro-esophageal reflux disease without esophagitis; Z88.0 Allergy status to penicillin; Z88.1 Allergy status to other antibiotic agents; Z88.2 Allergy status to sulfonamides; Z88.8 Allergy status to other drugs, medicaments and biological substances; Z79.899 Other long term (current) drug therapy
CPT/HCPCS: 47562; C1889; J0171; J3010; 88304; J0665; J1100; J1885; J2001; J2250; J2371; J2405; J2550; J2704; J3490; J7050; Q0162; S0028

== ENCOUNTER 2023-11-05 12:46 | Outpatient (CLI) | payer MEDICARE, MEDICAID | END 2023-11-05 12:47 | disposition home or self-care (01) | LOC: CT 12:46 | PROVIDERS: ATTEND Neurological Surgery | DX: M47.26 Other spondylosis with radiculopathy, lumbar region (principal); M48.061 Spinal stenosis, lumbar region without neurogenic claudication; M48.07 Spinal stenosis, lumbosacral region; M47.817 Spondylosis without myelopathy or radiculopathy, lumbosacral region; M48.56XA Collapsed vertebra, not elsewhere classified, lumbar region, initial encounter for fracture; M48.54XA Collapsed vertebra, not elsewhere classified, thoracic region, initial encounter for fracture; K44.9 Diaphragmatic hernia without obstruction or gangrene; M85.9 Disorder of bone density and structure, unspecified | CPT/HCPCS: 72131 ==

== ENCOUNTER 2024-01-30 10:16 | Outpatient (CLI) | payer MEDICARE, MEDICAID | END 2024-01-30 10:17 | disposition home or self-care (01) | LOC: RAD 10:16 | PROVIDERS: ATTEND Neurological Surgery | DX: R10.2 Pelvic and perineal pain (principal); M25.559 Pain in unspecified hip | CPT/HCPCS: 72170 ==

== ENCOUNTER 2024-08-04 13:26 | Inpatient (IN) | payer MEDICARE, MEDICAID ==
[~2024-08-04 13:26] MED LIST changes: -Iopamidol-370 76% 500 ML 1 ML ONE; +Iopamidol-370 76% 500 ML MDV (1 ML CHARGE) ONE
[2024-08-04 14:39] LABS: Bacteria/HPF None Seen HPF (None Seen); Bilirubin Negative (Negative); Blood, Urine Negative (Negative); CAUTI Indications for Culture Fever or rigors; Clarity Clear (Clear); Glucose, Urine (Dipstick) Normal (Negative); Ketone, Urine Negative (Negative); Leukocyte Negative Leu/uL (Negative); Nitrite Negative (Negative); Protein, Urine (Dipstick) 10 mg/dL (Neg-Trace); RBC/HPF 0-3 HPF (0-3); Specific Gravity, Urine 1.012 (1.002-1.036); Squamous Epithelial 0-3 HPF (0-3); Urobilinogen 6 mg/dL (Less than 2); WBC/HPF 0-3 HPF (0-3)
[2024-08-04 14:51] LABS: Transitional Epithelial None Seen HPF (None Seen)
[2024-08-04 14:53] LABS: Urine Culture Reflex No No
[2024-08-04 14:59] LABS: #Basophils Less than 0.03 10x3/uL (0.0-0.2); #Eosinophils Less than 0.03 10x3/uL (0.0-0.7); %Basophils 0.1 % (0.0-1.0); %Lymphocytes 7.3 % (21.0-51.0); %Monocytes 7.9 % (0.0-10.0); %Neutrophils 84.2 % (42.0-75.0); Hematocrit 33.6 % (36.0-47.0); Hemoglobin 11.4 g/dL (12.0-16.0); Mean Corpuscular HGB CONC 33.9 g/dL (32.0-36.0); Mean Corpuscular Hemoglobin 28.7 pg (27.0-31.0); Mean Corpuscular Volume 84.6 fL (78.0-98.0); Mean Platelet Volume 10.5 fL (7.4-10.4); Platelet Count 246 10x3/uL (130-400); RBC Distribution Width 12.9 % (11.5-14.5); Red Blood Cell (RBC) Count 3.97 mill/uL (4.20-5.40)
[2024-08-04 15:25] LABS: ALT (SGPT) 84 U/L (8-55); AST (SGOT) 98 U/L (5-34); Albumin 2.8 g/dL (3.4-4.8); Alkaline Phosphatase 559 U/L (40-110); Anion Gap 13 mmol/L (10-20); BUN (Urea Nitrogen) 7 mg/dL (9.8-20.1); Bilirubin, Total 2.6 mg/dL (0.2-1.2); Calc. Creatinine Clearance 0 mL/min (70-130); Calcium 8.1 mg/dL (7.8-10.44); Carbon Dioxide 24 mmol/L (23-31); Chloride 99 mmol/L (98-107); Estimated GFR 94; Globulin 3.5 g/dL (2.4-3.5); Glucose 130 mg/dL (83-110); Lipase 12 U/L (8-78); Magnesium 1.3 mg/dL (1.6-2.6); Potassium 4.2 mmol/L (3.5-5.1); Protein, Total 6.3 g/dL (5.8-8.1); Sodium 132 mmol/L (136-145)
[2024-08-04] MEDS ORDERED: Magnesium 2 GM/50 ML BAG (IN WATER) ONE (16:50)
[2024-08-04] MEDS ORDERED: Aspirin Chewable 81 MG TAB ONE (17:48)
[2024-08-04] MEDS ORDERED: Pantoprazole 40 MG VIAL ONE (17:50)
[2024-08-04] MEDS ORDERED: Famotidine/PF 20 mg/2ml Vial ONE (17:51)
[2024-08-04] MEDS ORDERED: Acetaminophen 325 MG TAB PO PRN (18:48)
[2024-08-04] MEDS ORDERED: Acetaminophen 650 MG Suppository PR PRN (18:48)
[2024-08-04 19:46] VITALS: BMI 18.7
[2024-08-04] MEDS: Sodium Chloride 0.9% 1,000 ML IV SCH (20:08)
[2024-08-04 20:37] LABS: Troponin I 0.102 ng/mL (< 0.028)
[2024-08-04] MEDS: Ondansetron PF 4 MG/2 ML Vial IVP PRN (22:19)
[2024-08-04 22:33] LABS: Troponin I 0.084 ng/mL (< 0.028)
[2024-08-04] MEDS ORDERED: Nitroglycerin 0.4 MG TAB (25 Tab Bottle) SL PRN (22:38)
[2024-08-04] MEDS: Ziprasidone 60 MG CAP PO SCH (22:43)
[2024-08-05 05:27] LABS: #Basophils Less than 0.03 10x3/uL (0.0-0.2); #Eosinophils Less than 0.03 10x3/uL (0.0-0.7); %Lymphocytes 21.2 % (21.0-51.0); %Monocytes 10.5 % (0.0-10.0); %Neutrophils 67.9 % (42.0-75.0); Hematocrit 33.5 % (36.0-47.0); Mean Corpuscular HGB CONC 32.8 g/dL (32.0-36.0); Mean Corpuscular Hemoglobin 28.7 pg (27.0-31.0); Mean Corpuscular Volume 87.5 fL (78.0-98.0); Mean Platelet Volume 10.9 fL (7.4-10.4); Platelet Count 218 10x3/uL (130-400); RBC Distribution Width 13.2 % (11.5-14.5); Red Blood Cell (RBC) Count 3.83 mill/uL (4.20-5.40)
[2024-08-05 05:30] LABS: Hemoglobin A1c 5.4 % (4.0-6.0)
[2024-08-05 05:36] LABS: Prothrombin Time 13.2 sec (12.0-14.7)
[2024-08-05 05:42] LABS: Magnesium 1.9 mg/dL (1.6-2.6)
[2024-08-05 05:44] LABS: ALT (SGPT) 67 U/L (8-55); AST (SGOT) 70 U/L (5-34); Albumin 2.4 g/dL (3.4-4.8); Alkaline Phosphatase 483 U/L (40-110); Anion Gap 12 mmol/L (10-20); BUN (Urea Nitrogen) 7 mg/dL (9.8-20.1); Bilirubin, Total 1.8 mg/dL (0.2-1.2); Calc. Creatinine Clearance 57 mL/min (70-130); Calcium 8.2 mg/dL (7.8-10.44); Carbon Dioxide 25 mmol/L (23-31); Cardiac Risk 3.3 (Less than 4.5); Chloride 106 mmol/L (98-107); Cholesterol 120 mg/dl (< 200 Desired); Estimated GFR 93; Globulin 3.3 g/dL (2.4-3.5); Glucose 95 mg/dL (83-110); HDL Cholesterol 36 mg/dL (>60 Neg Risk); LDL Cholesterol, Calculated 73 mg/dL; Phosphorus 3.4 mg/dL (2.3-4.7); Potassium 3.8 mmol/L (3.5-5.1); Protein, Total 5.7 g/dL (5.8-8.1); Sodium 139 mmol/L (136-145); Triglycerides 55 mg/dL (Less than 150)
[2024-08-05 05:49] LABS: Troponin I 0.055 ng/mL (< 0.028)
[2024-08-05] MEDS: Amlodipine 5 MG TAB PO SCH (09:05)
[2024-08-05] MEDS: BuPROPion XL 150 MG ER.TAB PO SCH (09:06)
[2024-08-05] MEDS: Fluticasone Propionate Nasal Spray 16 gm Bottle NASAL SCH (09:06)
[2024-08-05] MEDS: Lisinopril 20 MG TAB PO SCH (09:07)
[2024-08-05] MEDS: Multivit, Therapeutic 1 TAB PO SCH (09:07)
[2024-08-05] MEDS: Venlafaxine HCl XR 150 MG CAP PO SCH (09:07)
[2024-08-05] MEDS: Pantoprazole 40 MG VIAL IVP SCH (09:08)
[2024-08-05 11:06] VITALS: BMI 18.7
[2024-08-05] MEDS: Ziprasidone 60 MG CAP PO SCH (21:33)
[2024-08-05] MEDS: Aspirin 81 mg Enteric Coated Tablet PO SCH (21:33)
[2024-08-05] MEDS: Senokot S 8.6-50 MG TAB PO SCH (21:38)
[2024-08-06 07:00] LABS: #Basophils Less than 0.03 10x3/uL (0.0-0.2); #Eosinophils Less than 0.03 10x3/uL (0.0-0.7); %Lymphocytes 22.8 % (21.0-51.0); %Monocytes 8.5 % (0.0-10.0); %Neutrophils 68.3 % (42.0-75.0); Hemoglobin 12.2 g/dL (12.0-16.0); Mean Corpuscular HGB CONC 32.1 g/dL (32.0-36.0); Mean Corpuscular Hemoglobin 28.7 pg (27.0-31.0); Mean Corpuscular Volume 89.4 fL (78.0-98.0); Mean Platelet Volume 10.5 fL (7.4-10.4); Platelet Count 253 10x3/uL (130-400); RBC Distribution Width 13.1 % (11.5-14.5); Red Blood Cell (RBC) Count 4.25 mill/uL (4.20-5.40)
[2024-08-06 07:12] LABS: ALT (SGPT) 62 U/L (8-55); AST (SGOT) 56 U/L (5-34); Albumin 2.8 g/dL (3.4-4.8); Alkaline Phosphatase 500 U/L (40-110); Anion Gap 14 mmol/L (10-20); BUN (Urea Nitrogen) 10 mg/dL (9.8-20.1); Bilirubin, Total 1.2 mg/dL (0.2-1.2); Calc. Creatinine Clearance 59 mL/min (70-130); Carbon Dioxide 25 mmol/L (23-31); Chloride 106 mmol/L (98-107); Estimated GFR 94; Globulin 4.1 g/dL (2.4-3.5); Glucose 114 mg/dL (83-110); Iron 27 ug/dL (50-170); Iron Binding Capacity, Total 288 mcg/dL (265-497); Potassium 3.7 mmol/L (3.5-5.1); Protein, Total 6.9 g/dL (5.8-8.1); Sodium 141 mmol/L (136-145)
[2024-08-06 10:00] LABS: HBSAB Concentration Less than 8.00 mIU/mL; HBsAg Index 0.37 S/CO (0-0.99); Hep B Surf AB NONREACTIVE (NonReactive); Hep B Surf Ag NONREACTIVE S/CO (NonReactive); Hep C IgG Ab NONREACTIVE S/CO (NonReactive); Hep C Index 0.05 S/CO (0-0.79)
[2024-08-06] MEDS ORDERED: Iopamidol-370 76% 500 ML MDV (1 ML CHARGE) ONE (15:16)
[2024-08-06] MEDS: HYDROcodone/Acetaminophen 7.5/325 mg Tablet PO PRN (21:47)
[2024-08-07 05:19] LABS: ALT (SGPT) 45 U/L (8-55); AST (SGOT) 46 U/L (5-34); Albumin 2.6 g/dL (3.4-4.8); Alkaline Phosphatase 432 U/L (40-110); Bilirubin, Direct 0.5 mg/dL (0.1-0.3); Bilirubin, Total 0.8 mg/dL (0.2-1.2); Protein, Total 5.9 g/dL (5.8-8.1)
[2024-08-07 08:15] LABS: Hepatitis A Total ABS Negative (Negative)
[2024-08-07] MEDS ORDERED: fentaNYL 50 mcg/mL 1 mL Vial ONE (11:12)
[2024-08-07] MEDS ORDERED: Ondansetron PF 4 MG/2 ML Vial ONE (11:14)
[2024-08-07] MEDS ORDERED: Dexamethasone 20 MG/5 ML VIAL ONE (11:14)
[2024-08-08] MEDS ORDERED: SUGAMMADEX SODIUM 200 MG/2 ML VIAL ONE (10:14)
[2024-08-08] MEDS ORDERED: Indomethacin 50 MG SUPP ONE (10:14)
[2024-08-08] MEDS ORDERED: fentaNYL 50 mcg/mL 1 mL Vial ONE (10:14)
[2024-08-08] MEDS ORDERED: PROPOFOL 20 ML ONE (10:14)
[2024-08-08] MEDS ORDERED: Ondansetron PF 4 MG/2 ML Vial ONE (10:15)
[2024-08-08] MEDS ORDERED: Rocuronium Bromide 10 MG/ML (10ML VIAL) ONE (10:15)
[2024-08-08] MEDS ORDERED: Lidocaine 1% PF 5 ML VIAL ONE (10:15)
[2024-08-08] MEDS ORDERED: LevoFLOXacin D5W 500 mg (100 mL) BAG ONE (10:19)
[2024-08-08] MEDS ORDERED: Iopamidol 30 ML ONE (10:27)
[2024-08-08 10:37] LABS: Smooth Muscle Total ABS 2 Units (0-19)
[2024-08-08] MEDS ORDERED: PHENYLEPHRINE-NS 100 MCG/ML 10 ML SYRINGE ONE ×2 (10:47→11:17)
[2024-08-08] MEDS ORDERED: Glucagon 1 MG/ML KIT ONE ×2 (10:56→11:23)
[2024-08-08] MEDS: Ondansetron ODT 4 MG TAB PO PRN (13:25)
[2024-08-08 13:38] LABS: Alpha-1-Antitrypsin 247 mg/dL (101-187)
[2024-08-08] MEDS: Lidocaine 4% Patch TD SCH (14:17)
[2024-08-08] MEDS: Metoclopramide HCl 10 MG (2 mL) VIAL IVP PRN (16:46)
[2024-08-08] MEDS: Polyethylene Glycol 3350 17 GM Packet PO PRN (19:54)
[2024-08-09] MEDS: Transdermal Patch Removal TOP SCH (03:38)
[2024-08-09 10:10] LABS: ALT (SGPT) 52 U/L (8-55); AST (SGOT) 65 U/L (5-34); Albumin 2.7 g/dL (3.4-4.8); Alkaline Phosphatase 508 U/L (40-110); Anion Gap 14 mmol/L (10-20); BUN (Urea Nitrogen) 15 mg/dL (9.8-20.1); Bilirubin, Total 0.6 mg/dL (0.2-1.2); Calc. Creatinine Clearance 56 mL/min (70-130); Calcium 8.6 mg/dL (7.8-10.44); Carbon Dioxide 25 mmol/L (23-31); Chloride 105 mmol/L (98-107); Estimated GFR 93; Globulin 3.5 g/dL (2.4-3.5); Glucose 102 mg/dL (83-110); Potassium 4.5 mmol/L (3.5-5.1); Protein, Total 6.2 g/dL (5.8-8.1); Sodium 139 mmol/L (136-145)
[2024-08-10 03:54] VITALS: TEMP 97.7
[2024-08-10 06:53] LABS: ALT (SGPT) 46 U/L (8-55); AST (SGOT) 50 U/L (5-34); Albumin 2.7 g/dL (3.4-4.8); Alkaline Phosphatase 465 U/L (40-110); Anion Gap 14 mmol/L (10-20); BUN (Urea Nitrogen) 17 mg/dL (9.8-20.1); Bilirubin, Total 0.5 mg/dL (0.2-1.2); Calc. Creatinine Clearance 48 mL/min (70-130); Calcium 8.8 mg/dL (7.8-10.44); Carbon Dioxide 28 mmol/L (23-31); Chloride 102 mmol/L (98-107); Estimated GFR 90; Globulin 3.4 g/dL (2.4-3.5); Glucose 114 mg/dL (83-110); Lipase 24 U/L (8-78); Potassium 4.5 mmol/L (3.5-5.1); Protein, Total 6.1 g/dL (5.8-8.1); Sodium 139 mmol/L (136-145)
[2024-08-10 09:06] VITALS: BP 144/65
[2024-08-11 11:39] LABS: ANA Symphony (Qualitative) Negative (Negative); ANA Symphony (Quantitative) 0.1 Ratio (< 0.7 Negative); EliA Vaculitis New Method **** NEW METHOD ****; Mitochondrial Ab 0.7 U/mL (<4 Negative); dsDNA IgG Antibody 2.7 IU/mL (<10 Negative)
== END 2024-08-10 10:41 | disposition home or self-care (01) | DRG 445 ==
LOC: ERS 13:26 → ERHOLD 18:38 → OBS 21:29 → OBSVTOIN 08-06 13:15
PROVIDERS: ADMIT Internal Medicine; ATTEND Hospitalist
PROC: 0FC98ZZ Extirpation of Matter from Common Bile Duct, Via Natural or Artificial Opening Endoscopic (ICD-10-PCS; principal; 2024-08-08)
DX: K80.50 Calculus of bile duct without cholangitis or cholecystitis without obstruction (principal); I5A Non-ischemic myocardial injury (non-traumatic); Z68.1 Body mass index [BMI] 19.9 or less, adult; A08.4 Viral intestinal infection, unspecified; F31.9 Bipolar disorder, unspecified; K21.9 Gastro-esophageal reflux disease without esophagitis; E78.5 Hyperlipidemia, unspecified; I10 Essential (primary) hypertension; F41.9 Anxiety disorder, unspecified; K44.9 Diaphragmatic hernia without obstruction or gangrene; E83.42 Hypomagnesemia; I34.0 Nonrheumatic mitral (valve) insufficiency; K59.00 Constipation, unspecified; R63.6 Underweight; Z79.82 Long term (current) use of aspirin; Z79.899 Other long term (current) drug therapy; Z90.49 Acquired absence of other specified parts of digestive tract; Z88.0 Allergy status to penicillin; Z88.1 Allergy status to other antibiotic agents
CPT/HCPCS: 36415; 51701; 70491; 74177; 74181; 74330; 76376; 76705; 80053; 80061; 80076; 81001; 82103; 82248; 83036; 83516; 83540; 83550; 83690; 83735; 84100; 84443; 84484; 85025; 85610; 86015; 86038; 86225; 86706; 86708; 86803; 87340; 93005; 93306; 94760; 96365; 96375; 96376; C1725; C1769; G0378; J1100; J1611; J1956; J2405; J2470; J2704; J2765; J3010; J3475; J3490; J7030; Q0162; Q9967

== ENCOUNTER 2024-10-18 11:30 | Inpatient (IN) | payer MEDICARE, MEDICAID ==
[2024-10-18 12:33] LABS: #Basophils Less than 0.03 10x3/uL (0.0-0.2); #Eosinophils Less than 0.03 10x3/uL (0.0-0.7); %Basophils 0.1 % (0.0-1.0); %Lymphocytes 13.5 % (21.0-51.0); %Monocytes 5.6 % (0.0-10.0); %Neutrophils 80.2 % (42.0-75.0); Hematocrit 26.5 % (36.0-47.0); Hemoglobin 8.3 g/dL (12.0-16.0); Mean Corpuscular HGB CONC 31.3 g/dL (32.0-36.0); Mean Corpuscular Hemoglobin 24.4 pg (27.0-31.0); Mean Corpuscular Volume 77.9 fL (78.0-98.0); Mean Platelet Volume 10.3 fL (7.4-10.4); Platelet Count 331 10x3/uL (130-400); RBC Distribution Width 14.8 % (11.5-14.5)
[2024-10-18 12:50] LABS: ALT (SGPT) 14 U/L (Less than 34); AST (SGOT) 26 U/L (11-34); Albumin 3.2 g/dL (3.1-4.5); Alkaline Phosphatase 61 U/L (40-110); Anion Gap 13 mmol/L (10-20); BUN (Urea Nitrogen) 45 mg/dL (9.8-20.1); Bilirubin, Total 0.3 mg/dL (0.3-1.2); Calc. Creatinine Clearance 0 mL/min (70-130); Calcium 8.4 mg/dL (7.8-10.44); Carbon Dioxide 22 mmol/L (23-31); Chloride 106 mmol/L (98-107); Estimated GFR 79; Globulin 2.6 g/dL (2.4-3.5); Glucose 109 mg/dL (83-110); Lipase 13 U/L (8-78); Protein, Total 5.8 g/dL (5.8-8.1); Sodium 137 mmol/L (136-145)
[2024-10-18 12:51] LABS: Troponin I 0.023 ng/mL (< 0.028)
[2024-10-18 12:59] LABS: PTT 27.2 sec (22.9-36.1); Prothrombin Time 13.2 sec (12.0-14.7)
[2024-10-18] MEDS ORDERED: Pantoprazole 40 MG VIAL ONE (14:51)
[2024-10-18] MEDS ORDERED: Ondansetron PF 4 MG/2 ML Vial ONE (14:51)
[2024-10-18] MEDS ORDERED: Ondansetron PF 4 MG/2 ML Vial IVP PRN (16:13)
[2024-10-18] MEDS ORDERED: Acetaminophen 325 MG TAB PO PRN (16:13)
[2024-10-18 17:10] VITALS: BMI 19.9
[2024-10-18] MEDS: Venlafaxine HCl XR 150 MG CAP PO SCH (17:31)
[2024-10-18] MEDS: BuPROPion XL 150 MG ER.TAB PO SCH (17:31)
[2024-10-18] MEDS: Lactated Ringer's 1,000 ML IV SCH (17:32)
[2024-10-18] MEDS: Lisinopril 10 MG TAB PO SCH (18:26)
[2024-10-18 18:48] LABS: Troponin I 0.017 ng/mL (< 0.028)
[2024-10-18] MEDS: Atorvastatin Calcium 10 MG TAB PO SCH (21:13)
[2024-10-18] MEDS: HYDROcodone/Acetaminophen 7.5/325 mg Tablet PO SCH (21:13)
[2024-10-18] MEDS: Pantoprazole 40 MG VIAL IVP SCH (21:14)
[2024-10-18 21:27] LABS: Hematocrit 23.9 % (36.0-47.0); Hemoglobin 7.2 g/dL (12.0-16.0)
[2024-10-18] MEDS: Ziprasidone 60 MG CAP PO SCH (21:48)
[2024-10-19 06:56] LABS: #Basophils Less than 0.03 10x3/uL (0.0-0.2); #Eosinophils Less than 0.03 10x3/uL (0.0-0.7); %Lymphocytes 30.8 % (21.0-51.0); %Monocytes 8.6 % (0.0-10.0); Hematocrit 20.2 % (36.0-47.0); Hemoglobin 6.1 g/dL (12.0-16.0); Mean Corpuscular HGB CONC 30.2 g/dL (32.0-36.0); Mean Corpuscular Hemoglobin 24.1 pg (27.0-31.0); Mean Corpuscular Volume 79.8 fL (78.0-98.0); Mean Platelet Volume 10.7 fL (7.4-10.4); Platelet Count 184 10x3/uL (130-400); Red Blood Cell (RBC) Count 2.53 mill/uL (4.20-5.40)
[2024-10-19 07:11] LABS: Anion Gap 10 mmol/L (10-20); BUN (Urea Nitrogen) 26 mg/dL (9.8-20.1); Calc. Creatinine Clearance 55 mL/min (70-130); Carbon Dioxide 25 mmol/L (23-31); Chloride 111 mmol/L (98-107); Estimated GFR 91; Glucose 105 mg/dL (83-110); Sodium 142 mmol/L (136-145)
[2024-10-19] MEDS: BuPROPion XL 150 MG ER.TAB PO SCH (09:02)
[2024-10-19] MEDS: Multivit, Therapeutic 1 TAB PO SCH (09:02)
[2024-10-19] MEDS: Venlafaxine HCl XR 150 MG CAP PO SCH (09:02)
[2024-10-19] MEDS: Lisinopril 20 MG TAB PO SCH (09:02)
[2024-10-19] MEDS: Amlodipine 5 MG TAB PO SCH (09:02)
[2024-10-19] MEDS ORDERED: PROPOFOL 20 ML ONE (09:19)
[2024-10-19] MEDS ORDERED: GLYCOPYRROLATE/PF 0.2 MG/ML VIAL ONE (09:22)
[2024-10-19] MEDS ORDERED: PHENYLEPHRINE-NS 100 MCG/ML 10 ML SYRINGE ONE (12:00)
[2024-10-19] MEDS ORDERED: Lidocaine 1% PF 5 ML VIAL ONE (12:00)
[2024-10-19] MEDS ORDERED: Albuterol 2.5 MG (3 mL) NEB NEB PRN (21:41)
[2024-10-20 05:54] LABS: #Basophils Less than 0.03 10x3/uL (0.0-0.2); #Eosinophils Less than 0.03 10x3/uL (0.0-0.7); %Lymphocytes 32.8 % (21.0-51.0); %Neutrophils 55.7 % (42.0-75.0); Hematocrit 23.5 % (36.0-47.0); Hemoglobin 7.4 g/dL (12.0-16.0); Mean Corpuscular HGB CONC 31.5 g/dL (32.0-36.0); Mean Corpuscular Hemoglobin 25.6 pg (27.0-31.0); Mean Corpuscular Volume 81.3 fL (78.0-98.0); Platelet Count 171 10x3/uL (130-400); RBC Distribution Width 14.7 % (11.5-14.5); Red Blood Cell (RBC) Count 2.89 mill/uL (4.20-5.40)
[2024-10-20 07:56] VITALS: TEMP 98.7
[2024-10-20 11:27] VITALS: BP 159/54
== END 2024-10-20 14:13 | disposition home or self-care (01) | DRG 378 ==
LOC: ERS 11:30 → T4-B 15:34 → T4-A 21:10
PROVIDERS: ADMIT Internal Medicine; ATTEND Internal Medicine
PROC: 0DJ08ZZ Inspection of Upper Intestinal Tract, Via Natural or Artificial Opening Endoscopic (ICD-10-PCS; principal; 2024-10-18)
PROC: 30233N1 Transfusion of Nonautologous Red Blood Cells into Peripheral Vein, Percutaneous Approach (ICD-10-PCS; 2024-10-18)
DX: K92.0 Hematemesis (principal); D62 Acute posthemorrhagic anemia; I10 Essential (primary) hypertension; J45.909 Unspecified asthma, uncomplicated; E03.9 Hypothyroidism, unspecified; E78.5 Hyperlipidemia, unspecified; K25.9 Gastric ulcer, unspecified as acute or chronic, without hemorrhage or perforation; K44.9 Diaphragmatic hernia without obstruction or gangrene; K21.9 Gastro-esophageal reflux disease without esophagitis; F31.9 Bipolar disorder, unspecified; Z88.1 Allergy status to other antibiotic agents; Z88.0 Allergy status to penicillin; Z79.82 Long term (current) use of aspirin; Z79.899 Other long term (current) drug therapy; Z90.49 Acquired absence of other specified parts of digestive tract
CPT/HCPCS: 36415; 36430; 80048; 80053; 83690; 84484; 85025; 85610; 85730; 86850; 86900; 86901; 93005; 96361; 96374; 96375; J2405; J2470; J2704; J3490; J7120; P9016

== ENCOUNTER 2025-05-31 09:47 | Outpatient (CLI) | payer MEDICARE, MEDICAID | END 2025-05-31 09:48 | disposition home or self-care (01) | LOC: CT 09:47 | PROVIDERS: ATTEND Neurological Surgery | DX: M54.16 Radiculopathy, lumbar region (principal); M40.56 Lordosis, unspecified, lumbar region; S22.089A Unspecified fracture of T11-T12 vertebra, initial encounter for closed fracture; S32.039A Unspecified fracture of third lumbar vertebra, initial encounter for closed fracture; M48.05 Spinal stenosis, thoracolumbar region; M48.061 Spinal stenosis, lumbar region without neurogenic claudication; M48.07 Spinal stenosis, lumbosacral region | CPT/HCPCS: 72131 ==

== ENCOUNTER 2025-07-08 09:50 | Outpatient (CLI) | payer MEDICARE, MEDICAID ==
[2025-07-08] MEDS ORDERED: Barium Sulfate 96% 176 GM BOT (xray ONLY) ONE (10:04)
[2025-07-08] MEDS ORDERED: E-Z-HD 98% W/W 340GM BOT (x-ray ONLY) ONE (10:04)
== END 2025-07-08 09:51 | disposition home or self-care (01) ==
LOC: RAD 09:50
PROVIDERS: ATTEND Physician Assistant Medical
DX: K25.3 Acute gastric ulcer without hemorrhage or perforation (principal); K44.9 Diaphragmatic hernia without obstruction or gangrene; D62 Acute posthemorrhagic anemia; R13.10 Dysphagia, unspecified
CPT/HCPCS: 74220

== ENCOUNTER 2025-07-22 17:48 | Inpatient (IN) | payer MEDICARE, MEDICAID ==
[2025-07-22 18:55] LABS: Bacteria/HPF None Seen HPF (None Seen); CAUTI Indications for Culture Pelvic or flank pain; Glucose, Urine (Dipstick) Normal (Negative); Leukocyte Negative Leu/uL (Negative); Protein, Urine (Dipstick) Negative (Neg-Trace); RBC/HPF 0-3 HPF (0-3); Specific Gravity, Urine 1.017 (1.002-1.036); WBC/HPF 0-3 HPF (0-3)
[2025-07-22 18:59] LABS: Urine Culture Reflex No No
[2025-07-22 19:01] LABS: #Basophils Less than 0.03 10x3/uL (0.0-0.2); #Eosinophils Less than 0.03 10x3/uL (0.0-0.7); #Monocytes 0.83 10x3/uL (0.11-0.59); #Neutrophils 10.27 10x3/uL (1.40-6.50); %Basophils 0.1 % (0.0-1.0); %Eosinophils 0.0 % (0.0-10.0); %Lymphocytes 9.4 % (21.0-51.0); %Monocytes 6.7 % (0.0-10.0); %Neutrophils 83.2 % (42.0-75.0); Hematocrit 36.0 % (36.0-47.0); Hemoglobin 12.0 g/dL (12.0-16.0); Mean Corpuscular Hemoglobin 29.3 pg (27.0-31.0); Mean Corpuscular Volume 87.8 fL (78.0-98.0); Platelet Count 209 10x3/uL (130-400); Red Blood Cell (RBC) Count 4.10 mill/uL (4.20-5.40); White Blood Cell (WBC) Count 12.35 10x3/uL (4.8-10.8)
[2025-07-22 19:03] LABS: Cocaine Metabolite Screen Negative (Negative); THC/Cannabinoid Screen Negative (Negative); Tricyclic Screen Negative (Negative)
[2025-07-22 19:21] LABS: ALT (SGPT) 16 U/L (Less than 34); AST (SGOT) 25 U/L (11-34); Albumin 3.6 g/dL (3.1-4.5); Alkaline Phosphatase 70 U/L (40-110); Anion Gap 14 mmol/L (10-20); BUN (Urea Nitrogen) 22 mg/dL (9.8-20.1); Bilirubin, Total 0.5 mg/dL (0.3-1.2); Calc. Creatinine Clearance 0 mL/min (70-130); Calcium 8.8 mg/dL (7.8-10.44); Carbon Dioxide 24 mmol/L (23-31); Chloride 106 mmol/L (98-107); Globulin 2.6 g/dL (2.4-3.5); Glucose 147 mg/dL (83-110); Potassium 4.8 mmol/L (3.5-5.1); Sodium 139 mmol/L (136-145)
[2025-07-22 19:27] LABS: Acetaminophen Less than 10 mcg/mL (Less than 10); Salicylate Less than 8.0 mg/dL (Less than 8.0)
[2025-07-22] MEDS ORDERED: Droperidol 5 MG/2 ML VIAL ONE (19:56)
[2025-07-22] MEDS ORDERED: HYDROmorphone 0.5 MG/0.5 ML SYRINGE ONE (20:34)
[2025-07-22] MEDS ORDERED: Glucagon 1 MG/ML KIT IM PRN (21:01)
[2025-07-22] MEDS ORDERED: Acetaminophen 325 MG TAB PO PRN (21:01)
[2025-07-22] MEDS ORDERED: Dextrose 50% Abboject 50 ML SYRINGE SLOW IVP PRN (21:01)
[2025-07-22] MEDS ORDERED: hydrALAZINE 20 MG/ML VIAL SLOW IVP PRN (21:01)
[2025-07-22] MEDS ORDERED: Ondansetron PF 4 MG/2 ML Vial IVP PRN (21:01)
[2025-07-22 23:21] VITALS: BMI 23.8
[2025-07-22] MEDS: HYDROcodone/Acetaminophen 5/325 mg Tablet PO PRN (23:44)
[2025-07-22] MEDS: Methocarbamol 500 MG TAB PO PRN (23:44)
[2025-07-23 05:06] LABS: #Basophils Less than 0.03 10x3/uL (0.0-0.2); #Eosinophils Less than 0.03 10x3/uL (0.0-0.7); #Monocytes 0.84 10x3/uL (0.11-0.59); #Neutrophils 5.52 10x3/uL (1.40-6.50); %Basophils 0.1 % (0.0-1.0); %Eosinophils 0.0 % (0.0-10.0); %Lymphocytes 12.0 % (21.0-51.0); %Monocytes 11.6 % (0.0-10.0); %Neutrophils 75.9 % (42.0-75.0); Hematocrit 30.2 % (36.0-47.0); Hemoglobin 9.9 g/dL (12.0-16.0); Mean Corpuscular Hemoglobin 29.5 pg (27.0-31.0); Mean Corpuscular Volume 89.9 fL (78.0-98.0); Platelet Count 165 10x3/uL (130-400); Red Blood Cell (RBC) Count 3.36 mill/uL (4.20-5.40); White Blood Cell (WBC) Count 7.27 10x3/uL (4.8-10.8)
[2025-07-23 05:20] LABS: Anion Gap 13 mmol/L (10-20); BUN (Urea Nitrogen) 22 mg/dL (9.8-20.1); Calc. Creatinine Clearance 70 mL/min (70-130); Calcium 8.1 mg/dL (7.8-10.44); Carbon Dioxide 24 mmol/L (23-31); Chloride 105 mmol/L (98-107); Glucose 131 mg/dL (83-110); Potassium 4.5 mmol/L (3.5-5.1); Sodium 137 mmol/L (136-145)
[2025-07-23] MEDS: Pantoprazole 40 MG DR.TAB PO SCH (08:21)
[2025-07-23] MEDS: BuPROPion XL 150 MG ER.TAB PO SCH (08:21)
[2025-07-23] MEDS: Senokot S 8.6-50 MG TAB PO SCH (08:21)
[2025-07-23] MEDS: Lisinopril 20 MG TAB PO SCH (08:22)
[2025-07-24 05:59] LABS: #Basophils Less than 0.03 10x3/uL (0.0-0.2); #Eosinophils Less than 0.03 10x3/uL (0.0-0.7); #Monocytes 0.53 10x3/uL (0.11-0.59); #Neutrophils 3.11 10x3/uL (1.40-6.50); %Basophils 0.0 % (0.0-1.0); %Eosinophils 0.0 % (0.0-10.0); %Lymphocytes 21.0 % (21.0-51.0); %Monocytes 11.5 % (0.0-10.0); %Neutrophils 67.3 % (42.0-75.0); Hematocrit 23.0 % (36.0-47.0); Hemoglobin 7.6 g/dL (12.0-16.0); Mean Corpuscular Hemoglobin 29.9 pg (27.0-31.0); Mean Corpuscular Volume 90.6 fL (78.0-98.0); Platelet Count 132 10x3/uL (130-400); Red Blood Cell (RBC) Count 2.54 mill/uL (4.20-5.40); White Blood Cell (WBC) Count 4.62 10x3/uL (4.8-10.8)
[2025-07-24 06:11] LABS: Anion Gap 11 mmol/L (10-20); BUN (Urea Nitrogen) 20 mg/dL (9.8-20.1); Calc. Creatinine Clearance 77 mL/min (70-130); Calcium 7.9 mg/dL (7.8-10.44); Carbon Dioxide 26 mmol/L (23-31); Chloride 105 mmol/L (98-107); Glucose 122 mg/dL (83-110); Potassium 4.1 mmol/L (3.5-5.1); Sodium 138 mmol/L (136-145)
[2025-07-24 13:21] LABS: Hematocrit 22.6 % (36.0-47.0); Hemoglobin 7.3 g/dL (12.0-16.0)
[2025-07-25 08:57] LABS: #Basophils Less than 0.03 10x3/uL (0.0-0.2); #Eosinophils Less than 0.03 10x3/uL (0.0-0.7); #Monocytes 0.51 10x3/uL (0.11-0.59); #Neutrophils 3.37 10x3/uL (1.40-6.50); %Basophils 0.0 % (0.0-1.0); %Eosinophils 0.0 % (0.0-10.0); %Lymphocytes 18.4 % (21.0-51.0); %Monocytes 10.7 % (0.0-10.0); %Neutrophils 70.5 % (42.0-75.0); Hematocrit 22.9 % (36.0-47.0); Hemoglobin 7.4 g/dL (12.0-16.0); Mean Corpuscular Hemoglobin 29.7 pg (27.0-31.0); Mean Corpuscular Volume 92.0 fL (78.0-98.0); Platelet Count 139 10x3/uL (130-400); Red Blood Cell (RBC) Count 2.49 mill/uL (4.20-5.40); White Blood Cell (WBC) Count 4.78 10x3/uL (4.8-10.8)
[2025-07-25 09:16] LABS: Anion Gap 14 mmol/L (10-20); BUN (Urea Nitrogen) 17 mg/dL (9.8-20.1); Calc. Creatinine Clearance 77 mL/min (70-130); Calcium 8.1 mg/dL (7.8-10.44); Carbon Dioxide 24 mmol/L (23-31); Chloride 106 mmol/L (98-107); Glucose 131 mg/dL (83-110); Potassium 4.1 mmol/L (3.5-5.1); Sodium 140 mmol/L (136-145)
[2025-07-25] MEDS: Aspirin 81 mg Enteric Coated Tablet PO SCH (20:17)
[2025-07-26 06:12] LABS: #Basophils Less than 0.03 10x3/uL (0.0-0.2); #Eosinophils Less than 0.03 10x3/uL (0.0-0.7); #Monocytes 0.38 10x3/uL (0.11-0.59); #Neutrophils 2.60 10x3/uL (1.40-6.50); %Basophils 0.0 % (0.0-1.0); %Eosinophils 0.0 % (0.0-10.0); %Lymphocytes 19.2 % (21.0-51.0); %Monocytes 10.3 % (0.0-10.0); %Neutrophils 70.2 % (42.0-75.0); Hematocrit 23.8 % (36.0-47.0); Hemoglobin 7.7 g/dL (12.0-16.0); Mean Corpuscular Hemoglobin 29.5 pg (27.0-31.0); Mean Corpuscular Volume 91.2 fL (78.0-98.0); Platelet Count 139 10x3/uL (130-400); Red Blood Cell (RBC) Count 2.61 mill/uL (4.20-5.40); White Blood Cell (WBC) Count 3.70 10x3/uL (4.8-10.8)
[2025-07-26 06:32] LABS: Anion Gap 12 mmol/L (10-20); BUN (Urea Nitrogen) 13 mg/dL (9.8-20.1); Calc. Creatinine Clearance 91 mL/min (70-130); Calcium 8.2 mg/dL (7.8-10.44); Carbon Dioxide 26 mmol/L (23-31); Chloride 104 mmol/L (98-107); Glucose 125 mg/dL (83-110); Potassium 4.2 mmol/L (3.5-5.1); Sodium 138 mmol/L (136-145)
[2025-07-27 05:13] LABS: #Basophils Less than 0.03 10x3/uL (0.0-0.2); #Eosinophils Less than 0.03 10x3/uL (0.0-0.7); #Monocytes 0.43 10x3/uL (0.11-0.59); #Neutrophils 2.24 10x3/uL (1.40-6.50); %Basophils 0.0 % (0.0-1.0); %Eosinophils 0.0 % (0.0-10.0); %Lymphocytes 22.8 % (21.0-51.0); %Monocytes 12.4 % (0.0-10.0); %Neutrophils 64.5 % (42.0-75.0); Hematocrit 22.9 % (36.0-47.0); Hemoglobin 7.3 g/dL (12.0-16.0); Mean Corpuscular Hemoglobin 29.3 pg (27.0-31.0); Mean Corpuscular Volume 92.0 fL (78.0-98.0); Platelet Count 145 10x3/uL (130-400); Red Blood Cell (RBC) Count 2.49 mill/uL (4.20-5.40); White Blood Cell (WBC) Count 3.47 10x3/uL (4.8-10.8)
[2025-07-27 05:36] LABS: Anion Gap 13 mmol/L (10-20); BUN (Urea Nitrogen) 12 mg/dL (9.8-20.1); Calc. Creatinine Clearance 91 mL/min (70-130); Calcium 8.2 mg/dL (7.8-10.44); Carbon Dioxide 25 mmol/L (23-31); Chloride 106 mmol/L (98-107); Glucose 118 mg/dL (83-110); Potassium 3.8 mmol/L (3.5-5.1); Sodium 140 mmol/L (136-145)
[2025-07-27] MEDS: Lactulose 20 GM (30 mL) UDCUP PO SCH (09:48)
[2025-07-27] MEDS: Bisacodyl 10 MG SUPP PR SCH (09:53)
[2025-07-27] MEDS: Milk Of Magnesia 30 ML UDCUP PO SCH (09:54)
[2025-07-27 12:18] VITALS: BP 150/61; TEMP 98.4
== END 2025-07-27 13:49 | DRG 551 ==
LOC: ERS 17:48 → ERHOLD 21:01 → SURG A 23:11
PROVIDERS: ADMIT Surgery; ATTEND Surgery
DX: S12.100A Unspecified displaced fracture of second cervical vertebra, initial encounter for closed fracture (principal); S32.491A Other specified fracture of right acetabulum, initial encounter for closed fracture; S32.391A Other fracture of right ilium, initial encounter for closed fracture; W19.XXXA Unspecified fall, initial encounter; E78.5 Hyperlipidemia, unspecified; I10 Essential (primary) hypertension; K21.9 Gastro-esophageal reflux disease without esophagitis; Z98.890 Other specified postprocedural states; F41.9 Anxiety disorder, unspecified; F31.9 Bipolar disorder, unspecified; Z79.899 Other long term (current) drug therapy; Z88.1 Allergy status to other antibiotic agents; Z88.0 Allergy status to penicillin; Z88.2 Allergy status to sulfonamides; Z88.8 Allergy status to other drugs, medicaments and biological substances; S60.221A Contusion of right hand, initial encounter; T14.8XXA Other injury of unspecified body region, initial encounter
CPT/HCPCS: 36415; 36416; 51701; 70450; 70496; 70498; 71045; 71260; 72040; 72125; 72170; 72190; 74177; 80048; 80053; 80306; 80307; 81001; 83036; 85025; 90471; 90715; 93005; 96374; 96375; G0390; J1171; J1790; J3010; J7120; Q9967